=== PATIENT | female | born 1950 | race Hispanic/Latino ===

== ENCOUNTER 2018-01-27 17:38 | Inpatient (IN) | payer MEDICARE, MEDICAID ==
[2018-01-27 19:57] LABS: BASO # 0.01 K/mm3 (0.0-2.0); BASO % 0.1 % (0.0-3.0); EOS % 0.3 % (1.5-5.0); GRAN # 5.8 (1.4-6.5); GRAN % 66.1 % (50.0-68.0); HEMOGLOBIN 11.2 g/dL (12.0-16.0); LYMPH # 2.4 (1.2-3.4); LYMPH % 26.7 % (22.0-35.0); MEAN CORPUSCULAR HEMOGLOBIN 31.6 pg (25.0-35.0); MEAN CORPUSCULAR HGB CONC 35.6 g/dl (31.0-37.0); MEAN PLATELET VOLUME 7.7 fl (7.0-11.0); MONO # 0.6 (0.1-0.6); MONO % 6.8 % (1.0-6.0); RBC 3.54 10^6/uL (3.5-6.1); RED CELL DISTRIBUTION WIDTH 13.1 % (11.5-14.5); WHITE BLOOD COUNT 8.8 10^3/ul (4.5-11.0)
[2018-01-27 20:10] LABS: ACETAMINOPHEN < 10.0 ug/ml (10.0-20.0); ALB/GLOB RATIO 1.6 (1.1-1.8); ALBUMIN 4.3 g/dL (3.0-4.8); ALT/SGPT 27 U/L (7-56); AST/SGOT 31 U/L (14-36); BLOOD UREA NITROGEN 7 mg/dL (7-21); CALCIUM 9.3 mg/dL (8.4-10.5); GFR AFRICAN-AMERICAN > 60; GFR NON-AFRICAN AMERICAN > 60; SALICYLATE < 1 mg/dL (2.0-20.0)
[2018-01-27 20:31] LABS: URINE BILIRUBIN NEGATIVE (NEGATIVE); URINE BLOOD SMALL (NEGATIVE); URINE GLUCOSE (UA) NEGATIVE (NEGATIVE); URINE LEUKOCYTE ESTERASE NEGATIVE Leu/uL (NEGATIVE); URINE PROTEIN TRACE mg/dL (<30 mg/dL); URINE UROBILINOGEN 0.2 E.U./dL (<1 E.U./dL)
[2018-01-27 20:32] LABS: URINE APPEARANCE SL CLOUDY (CLEAR); URINE COLOR YELLOW (YELLOW)
[2018-01-27 20:39] LABS: URINE RBC 0 - 2 /hpf (0-2); URINE WBC NEGATIVE /hpf (0-6)
[2018-01-27 20:40] LABS: BARBITURATES, UR NEGATIVE (NEGATIVE); BENZODIAZEPINES, UR POSITIVE (NEGATIVE); OPIATES, UR NEGATIVE (NEGATIVE); PHENCYCLIDINE, UR NEGATIVE (NEGATIVE)
--- NOTE | 2018-01-27 21:31 | ED PDOC ---
Arrival/HPI - General Chief Complaint: Med Refill Time Seen by Provider: 01/27/18 19:14 Historian: Patient - History of Present Illness Narrative History of Present Illness (Text): 01/27/18 21:30 67-year-old female with a history of anxiety presents today stating she has been having intermittent anxiety attacks. Patient claims that she ran out of her psychiatric medications. Patient denies chest pain or shortness of breath at present time. Denies abdominal pain. No nausea or vomiting. Patient denies dizziness or weakness. Patient is unable to give an answer as to when the last time she took her anxiety medications. Although the [facility] aware website shows that she was prescribed 90 Valium on 01/03/18. Past Medical History - Provider Review Nursing Documentation Reviewed: Yes - Travel History Have you recently traveled outside [place] w/in the past 3 mons?: No - Infectious Disease Hx of Infectious Diseases: None - Reproductive Menopause: Yes - Cardiac Hx Cardiac Disorders: No - Pulmonary Hx Respiratory Disorders: No - Neurological Hx Neurological Disorder: No - HEENT Other/Comment: reading glasses - Hematological/Oncological Hx Blood Disorders: No Other/Comment: left breast lumpectomy; benign - Musculoskeletal/Rheumatological Hx Herniated Disk: Yes - Psychiatric Hx Anxiety: Yes Hx Panic Disorder: Yes Hx Substance Use: No - Surgical History Hx Section: Yes Hx Hysterectomy: Yes Other/Comment: benign tumor removed left breast - Anesthesia Hx Anesthesia: Yes Hx Anesthesia Reactions: No Hx Malignant Hyperthermia: No Family/Social History - Physician Review Nursing Documentation Reviewed: Yes Family/Social History: Unknown Family HX Smoking Status: Light Smoker < 10 Cigarettes Daily Hx Alcohol Use: No Hx Substance Use: No Allergies/Home Meds Allergies/Adverse Reactions: Allergies No Known Allergies Allergy (Verified 06/24/15 06:40) Home Medications: Home Meds Medication Instructions Recorded Confirmed clonazePAM [Klonopin] 3 tab PO BID 06/24/15 06/24/15 Citalopram Hydrobromide [Celexa] 40 mg PO DAILY 01/27/18 01/27/18 Cyclobenzaprine [Cyclobenzaprine 10 mg PO 01/27/18 HCl] diaZEpam [Valium] 10 mg PO TID 01/27/18 01/27/18 Review of Systems - Review of Systems Constitutional: absent: Fatigue, Fevers Respiratory: absent: SOB, Cough Cardiovascular: absent: Chest Pain, Palpitations Gastrointestinal: absent: Abdominal Pain, Nausea, Vomiting Genitourinary Female: absent: Dysuria, Frequency, Hematuria Musculoskeletal: absent: Arthralgias, Back Pain, Neck Pain Skin: absent: Rash, Pruritis Neurological: absent: Headache, Dizziness Psychiatric: Anxiety. absent: Depression, Suicidal Ideation Physical Exam Vital Signs Reviewed: Yes Vital Signs Temp Pulse Resp BP Pulse Ox 01/27/18 17:38 99.1 F 95 H 18 169/79 H 95 Temperature: Afebrile Blood Pressure: Hypertensive Pulse: Regular Respiratory Rate: Normal Appearance: Positive for: Well-Appearing, Non-Toxic, Comfortable Pain Distress: None Mental Status: Positive for: Alert and Oriented X 3 - Systems Exam Head: Present: Atraumatic Mouth: Present: Moist Mucous Membranes Neck: Present: Normal Range of Motion Respiratory/Chest: Present: Clear to Auscultation, Good Air Exchange. No: Respiratory Distress, Accessory Muscle Use Cardiovascular: Present: Regular Rate and Rhythm, Normal S1, S2. No: Murmurs Abdomen: No: Tenderness, Rebound, Guarding Neurological: Present: GCS=15, Speech Normal Skin: Present: Warm, Dry, Normal Color. No: Rashes Psychiatric: Present: Alert, Oriented x 3 Medical Decision Making ED Course and Treatment: 01/27/18 21:32 Patient is nontoxic well-appearing in no distress vital signs are stable. CBC WNL CMP NA; 121 Tylenol WNL Salicylate WNL Alcohol level WNL Urine drug screen + benzos UA; small blood cxr: wnl ekg NSR at 77b/m no st elevations. case discussed with dr. De Oliveira accepts admission to [facility] for hyponatremia. she would like to add. urine osmolality, urine NA, serum osmolality all aspects of this case were discussed the attending of record. Impression; hyponatremia, anxiety admit to tele. Reassessment Condition: Re-examined - Lab Interpretations Lab Results: 01/27/18 19:45 01/27/18 19:45 Lab Results 01/27/18 20:09: Urine Opiates Screen Negative, Urine Methadone Screen Negative, Ur Barbiturates Screen Negative, Ur Phencyclidine Scrn Negative, Ur Amphetamines Screen Negative, U Benzodiazepines Scrn Positive H, U Oth Cocaine Metabols Negative, U Cannabinoids Screen Negative 01/27/18 20:09: Urine Color Yellow, Urine Appearance Sl cloudy, Urine pH 7.0, Ur Specific [place] 1.015, Urine Protein Trace H, Urine Glucose (UA) Negative, Urine Ketones Negative, Urine Blood Small H, Urine Nitrate Negative, Urine Bilirubin Negative, Urine Urobilinogen 0.2, Ur Leukocyte Esterase Negative, Urine RBC 0 - 2, Urine WBC Negative 01/27/18 19:45: Alcohol, Quantitative < 10 01/27/18 19:45: Salicylates < 1 L, Acetaminophen < 10.0 L 01/27/18 19:45: Sodium 121 L, Potassium 4.7, Chloride 88 L, Carbon Dioxide 24, Anion Gap 14, BUN 7, Creatinine 0.5 L, Est GFR ( Amer) > 60, Est GFR (Non -Af Amer) > 60, Random Glucose 106, Calcium 9.3, Total Bilirubin 0.3, AST 31, ALT 27, Alkaline Phosphatase 50, Total Protein 7.0, Albumin 4.3, Globulin 2.7, Albumin/Globulin Ratio 1.6 01/27/18 19:45: WBC 8.8, RBC 3.54, Hgb 11.2 L, Hct 31.5 L, MCV 89.0, MCH 31.6, MCHC 35.6, RDW 13.1, Plt Count 335, MPV 7.7, Gran % 66.1, Lymph % (Auto) 26.7, [place] % (Auto) 6.8 H, Eos % (Auto) 0.3 L, Baso % (Auto) 0.1, Gran # 5.80, Lymph # (Auto) 2.4, [place] # (Auto) 0.6, Eos # (Auto) 0.0, Baso # (Auto) 0.01 - RAD Interpretation Radiology Orders: 01/27/18 19:15 CHEST PORTABLE [RAD] Stat - Medication Orders Current Medication Orders: Discontinued Medications Diazepam (Valium) 5 mg PO ONCE ONE Stop: 01/27/18 21:29 Disposition/Present on Arrival - Present on Arrival Any Indicators Present on Arrival: No History of DVT/PE: No History of Uncontrolled Diabetes: No Urinary Catheter: No History of Decub. Ulcer: No History Surgical Site Infection Following: None - Disposition Have Diagnosis and Disposition been Completed?: Yes Diagnosis: Anxiety, Hyponatremia Disposition: HOSPITALIZED Disposition Time: 21:28 Patient Plan: Admission Patient Problems: Current Active Problems Problem Status Onset Anxiety Acute Hyponatremia Acute Condition: GOOD Discharge Instructions (ExitCare): Anxiety, Adult (DC) Additional Instructions: Follow-up with primary care physician within the next 2 days Follow-up with a psychiatrist within the next 2 days Increase fluids Return if symptoms worsen persist or if new concerning symptoms develop Referrals: Titi Cunningham MD [Non-Staff] - Follow up with primary Bessy De Oliveira MD [Staff Provider] - Follow up with primary Forms: [employer] (Scottish), WORK NOTE
[2018-01-27] MEDS ORDERED: Sodium Chloride 3% 500 ML IV SCH (22:15)
[2018-01-27 23:21] LABS: OSMOLALITY,URINE 218 mosm/kg (300-1000)
[2018-01-27 23:30] LABS: T4 6.4 ug/dL (5.5-11.0)
[2018-01-28 00:53] VITALS: BMI 17.6
[2018-01-28 07:04] LABS: ALB/GLOB RATIO 1.4 (1.1-1.8); ALBUMIN 4.1 g/dL (3.0-4.8); ALT/SGPT 41 U/L (7-56); AST/SGOT 35 U/L (14-36); BLOOD UREA NITROGEN 8 mg/dL (7-21); CALCIUM 9.7 mg/dL (8.4-10.5); GFR AFRICAN-AMERICAN > 60; GFR NON-AFRICAN AMERICAN > 60
--- NOTE | 2018-01-28 09:13 | CARD ---
APPROVED REPORT EKG Measurement Heart [id number] CO [id number] <Conclusion> Normal sinus rhythm Normal ECG No change except the rate is faster
[2018-01-28] MEDS ORDERED: Sodium Chloride 0.9% 1,000 ML IV SCH (11:45)
[2018-01-28 11:46] LABS: IRON 126 ug/dL (45-180)
[2018-01-28 11:55] LABS: % IRON SATURATION 40 % (20-55); TOTAL IRON BINDING CAPACITY 318 ug/dL (265-497)
[2018-01-28] MEDS ORDERED: Iohexol 240 (50 ml) ONE (12:13)
--- NOTE | 2018-01-28 12:33 | RAD ---
HISTORY: pes eval COMPARISON: 06/24/2015 FINDINGS: LUNGS: No active pulmonary disease. PLEURA: No significant pleural effusion identified, no pneumothorax apparent. CARDIOVASCULAR: Normal. OSSEOUS STRUCTURES: No significant abnormalities. VISUALIZED UPPER ABDOMEN: Normal. OTHER FINDINGS: None. IMPRESSION: No active disease.
[2018-01-28 13:15] LABS: FOLATE 18.7 ng/mL
[2018-01-28] MEDS: Naproxen 550 mg Tab PO SCH ×2 (17:42→17:44)
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
[2018-01-29 06:57] VITALS: RESP 18; O2SAT 99
[2018-01-29 07:08] LABS: HEMOGLOBIN 11.4 g/dL (12.0-16.0)
[2018-01-29 07:31] LABS: BLOOD UREA NITROGEN 17 mg/dL (7-21); CALCIUM 9.4 mg/dL (8.4-10.5); GFR AFRICAN-AMERICAN > 60; GFR NON-AFRICAN AMERICAN > 60
[2018-01-29] MEDS: Naproxen 550 mg Tab PO SCH ×2 (09:59→17:45)
[2018-01-29 18:09] VITALS: BP 137/82; PULSE 79; TEMP 97.8
--- NOTE | 2018-01-30 07:26 | DS ---
DATE OF EXAM: 01/29/2018 FINAL DIAGNOSES: Hyponatremia, resolved; anemia of chronic disease; chronic degenerative arthritis; chronic depression; chronic anxiety; chronic insomnia; chronic smoking. DISPOSITION: Home. FOLLOWUP: The patient was advised to follow up with her PMD, Dr. Stern in [address] Cunningham, psychiatrist in 48 hours. DISCHARGE MEDICATIONS: She was given prescriptions for Valium 10 mg p.o. three times a day, #6, no refills and Celexa 40 mg p.o. daily, #2, no refills. The patient was also advised to pick up truck driver Nicoderm smoking patch 7 mg per 24 hour and to cease smoking and also to have followup basic metabolic panel under the direction of her PMD in the next 48 hours. SUMMARY: This is a 67-year-old female who was admitted to [facility] with hyponatremia, was found to have anemia of chronic disease and was treated successfully with initially hypertonic saline, then normal saline and p.o. fluid restriction. The patient was seen by psychiatrist, Dr. Alvin Odonnell who cleared the patient for discharge and advised her to follow up for her routine psychiatric issues with Dr. Cunningham and I have advised this patient to follow up with her PMD, Dr. Stern regarding management of her newly noted now resolved hyponatremia and chronic issues of degenerative arthritis, anxiety neurosis, anemia of chronic disease and at the time of discharge, she was noted to have a temperature of 98.3, respirations 20, pulse 80 and blood pressure 142/70. She was in a normal sinus rhythm. Current labs shows sodium 138, K 5.4, chloride 101, bicarb 30, BUN 17, creatinine 0.7, random blood sugar 93. Iron 126, TIBC 318, percent saturation 40, ferritin 116 normal. All liver function testing was normal. B12 348. Folic acid 18.7, normal T4 6.4 normal and TSH 1.09 normal. Urinalysis showed trace protein, urine sodium 41, urine osmolarity 218. Toxicology screen positive for benzodiazepines and white count 8800, hemoglobin 11.4, hematocrit 33.7, platelets 335,000. All of the above was reviewed with the patient in the presence of her nurse and all questions were answered. Greater than 35 minutes was spent in the discharge management of this patient today. Hopefully, she will be compliant with the above recommendations as outlined by myself and Dr. Odonnell from Psychiatry. Bessy De Oliveira MD [facility]
--- NOTE | 2018-01-31 08:05 | HP ---
DATE OF EXAM: 01/28/2018 HISTORY OF PRESENT ILLNESS: This 67-year-old female was examined at her bedside and this case was reviewed in detail with herself, Dr. Odonnell from Psychiatry, and emergency room physicians. She presented to the emergency room complaining of a panic attack. She was requesting additional Valium because she states she ran out of this prescription. She is under the psychiatric care of Dr. Cunningham, psychiatrist, and was last prescribed 90 Valium on 01/03/2018. While in the emergency room, she was noted to be anxious, ataxic, and hyponatremic and was admitted for further evaluation of the above. On further evaluation of this patient, she states that she has chronic insomnia, chronic anxiety, and has a history of suicidal attempt in her past. Her EMR states that she has a history of left breast lumpectomy for benign lesion in the past and is under the medical care of Dr. Stern at the [facility] in [place], [place], and follows with Dr. Cunningham from Psychiatry and a director global strategic publisher sales as well. SOCIAL HISTORY: The patient states she is a smoker, social drinker, non-IV-drug misuser. ALLERGIES: DENIED ANY ALLERGIES TO MEDICATION. MEDICATIONS: States as an outpatient, she takes Klonopin, dose unknown, twice daily; Celexa 60 mg p.o. daily; Flexeril 10 mg daily; and Valium 10 mg p.o. t.i.d. REVIEW OF SYSTEMS: CONSTITUTIONAL: Denied fever and chills. HEAD: No headache. EYE: No change in visual acuity. Ear: No hearing loss. THROAT: No swallowing difficulty. NECK: No stiffness. CARDIAC: No chest pain, no palpitation. PULMONARY: No cough. No hemoptysis. GI: No hematemesis. No melena. : No dysuria. SKIN: No rash. VASCULAR: No claudication. PSYCHOLOGICAL: She has chronic anxiety, depression, and insomnia. SKIN: No active rash at present. On the laboratory monitor, she is in a normal sinus rhythm. PHYSICAL EXAMINATION: VITAL SIGNS: Her temperature was 98.3, respirations 17, pulse 93, and blood pressure 134/88. HEENT: Head: Normocephalic, atraumatic. Eyes: No icterus. Ears: Clear. Throat: Noninjected. NECK: Supple. HEART: Regular S1, S2. LUNGS: Clear. ABDOMEN: Soft. EXTREMITIES: No edema. SKIN: Without rash. NEUROLOGICAL: Grossly intact. PSYCHOLOGICAL: Alert and anxious. VASCULAR: Legs warm to touch. LABORATORY DATA: Her labs show a toxicology screen positive for benzodiazepines. White count 8800, hemoglobin 11.2, hematocrit 31.5, platelets 335,000. Admission sodium was 121, K 4.7, chloride 88, bicarb 24, BUN 7, creatinine 0.5, random blood sugar 106. Bilirubin 0.3, AST 31, ALT is 27, alk phos 50. Serum osmolality, low 246. T4 normal 6.4, TSH normal 1.09. Urine osmolality, low 218. Urine sodium high, 41. Chest x-ray was reviewed and showed no active disease and EKG was reviewed and showed normal sinus rhythm with nonspecific ST-T wave changes. IMPRESSION: A 67-year-old female with chronic anxiety, chronic depression, history of suicidal ideation in her past, history of insomnia; now admitted with hyponatremia of unclear etiology. Patient denied any use of diuretics, vomiting, or diarrhea. PLAN: The plan, as outlined, will be to continue 3% saline at 35 mL/hour. She will be seen by Dr. Odonnell who is outlining medication including Celexa 40 mg p.o. daily, Flexeril 10 mg p.o. at nighttime, Nicoderm 7 mg per 24 hours smoking patch to arm daily, and Valium 10 mg p.o. t.i.d. She is also to receive naproxen 500 mg p.o. b.i.d. for her chronic degenerative arthritic complaints. I have requested a CT of head, chest, abdomen, and pelvis for completeness sake, which the patient refuses and based on a.m. blood work, patient will be readied for discharge to home and for follow up with her PMD, Dr. Stern; her psychiatrist, Dr. Cunningham; and her director global strategic publisher sales. Greater than 75 minutes was spent in the care management, review of labs, orders, x-rays, EKGs, and outlining of treatment plan for this patient today. All questions were answered. Bessy De Oliveira MD [facility] # [id number] TONY
== END 2018-01-29 18:36 | disposition home or self-care (01) | DRG 641 ==
LOC: ED 17:38 → ERH 21:53 → 2RNO 23:16
PROVIDERS: ADMIT Internal Medicine; ATTEND Internal Medicine
DX: E87.1 Hypo-osmolality and hyponatremia (principal); D63.8 Anemia in other chronic diseases classified elsewhere; F41.0 Panic disorder [episodic paroxysmal anxiety]; F41.1 Generalized anxiety disorder; F31.9 Bipolar disorder, unspecified; M19.90 Unspecified osteoarthritis, unspecified site; M06.9 Rheumatoid arthritis, unspecified; F51.04 Psychophysiologic insomnia; F17.200 Nicotine dependence, unspecified, uncomplicated; F60.4 Histrionic personality disorder

== ENCOUNTER 2018-03-27 21:04 | Emergency (ER) | payer MEDICARE, MEDICAID ==
[2018-03-27 21:31] VITALS: BMI 25.6
--- NOTE | 2018-03-27 21:36 | ED PDOC ---
Arrival/HPI - General Historian: Patient - History of Present Illness Time/Duration: 1 week Symptom Course: Unchanged Severity Level: 1 <Figueroa Cool - Last Filed: 03/27/18 22:44> <Elda Ramírez - Last Filed: 03/27/18 23:34> - General Time Seen by Provider: 03/27/18 21:19 - History of Present Illness Narrative History of Present Illness (Text): 03/27/18 21:55 Patient is a 67 year old female with PMH of anxiety and depression presenting to the ED with anxiety. Patient states that she is feeling anxious because she ran out of her medication and cannot refill them until Wednesday. She states that she needs to take her medications now. Patient denies suicidal or homicidal ideation. Patient denies headaches, fevers, chills, chest pain, abdominal pain, or urinary symptoms. (Figueroa Cool) Past Medical History - Provider Review Nursing Documentation Reviewed: Yes - Travel History Have you recently traveled outside [place] w/in the past 3 mons?: No - Past History Past History: No Previous - Infectious Disease Hx of Infectious Diseases: None - Cardiac Hx Cardiac Disorders: No - Pulmonary Hx Respiratory Disorders: No - Neurological Hx Neurological Disorder: No - HEENT Other/Comment: reading glasses - Hematological/Oncological Hx Blood Disorders: No Other/Comment: left breast lumpectomy; benign - Musculoskeletal/Rheumatological Hx Falls: No Hx Herniated Disk: Yes - Genitourinary/Gynecological Hx Sexually Transmitted Diseases: No - Psychiatric Hx Anxiety: Yes Hx Panic Disorder: Yes Hx Substance Use: No - Surgical History Hx Hysterectomy: Yes Other/Comment: benign tumor removed left breast - Anesthesia Hx Anesthesia: Yes Hx Anesthesia Reactions: No Hx Malignant Hyperthermia: No <Figueroa Cool - Last Filed: 03/27/18 22:44> Family/Social History - Physician Review Nursing Documentation Reviewed: Yes Family/Social History: No Known Family HX Smoking Status: Heavy Smoker > 10 Cigarettes Daily Hx Alcohol Use: Yes Hx Substance Use: No <Figueroa Cool - Last Filed: 03/27/18 22:44> Allergies/Home Meds <Figueroa Cool - Last Filed: 03/27/18 22:44> <Elda Ramírez - Last Filed: 03/27/18 23:34> Allergies/Adverse Reactions: Allergies No Known Allergies Allergy (Verified 03/27/18 21:45) Home Medications: Home Meds Medication Instructions Recorded Confirmed clonazePAM [Klonopin] 3 tab PO BID 06/24/15 03/27/18 Citalopram Hydrobromide [Celexa] 40 mg PO DAILY 01/27/18 03/27/18 Cyclobenzaprine [Cyclobenzaprine 10 mg PO DAILY 01/27/18 03/27/18 HCl] diaZEpam [Valium] 10 mg PO TID 01/27/18 03/27/18 Review of Systems - Physician Review All systems were reviewed & negative as marked: Yes - Review of Systems Constitutional: Normal. absent: Fevers, Night Sweats Eyes: Normal. absent: Vision Changes ENT: Normal Respiratory: Normal. absent: SOB Cardiovascular: Normal. absent: Chest Pain Gastrointestinal: Normal. absent: Abdominal Pain, Constipation, Diarrhea, Nausea, Vomiting Genitourinary Female: Normal. absent: Dysuria, Frequency, Hematuria Musculoskeletal: Normal. absent: Arthralgias Skin: Normal. absent: Rash, Pruritis Neurological: Normal. absent: Headache Psychiatric: Anxiety <Figueroa Cool - Last Filed: 03/27/18 22:44> - Review of Systems Psychiatric: Depression. absent: Suicidal Ideation (homicidal ideation) <Elda Ramírez - Last Filed: 03/27/18 23:34> Physical Exam Vital Signs Reviewed: Yes Temperature: Afebrile Blood Pressure: Normal Pulse: Regular Respiratory Rate: Normal Appearance: Positive for: Well-Appearing Pain Distress: None Mental Status: Positive for: Alert and Oriented X 3 - Systems Exam Head: Present: Atraumatic, Normocephalic Pupils: Present: PERRL Extroacular Muscles: Present: EOMI Conjunctiva: Present: Normal Mouth: Present: Moist Mucous Membranes Respiratory/Chest: Present: Clear to Auscultation, Good Air Exchange. No: Respiratory Distress, Accessory Muscle Use, Wheezes, Rales, Rhonchi Cardiovascular: Present: Regular Rate and Rhythm, Normal S1, S2. No: Murmurs, Rub, Gallop Abdomen: Present: Normal Bowel Sounds. No: Tenderness, Distention, Peritoneal Signs Upper Extremity: Present: Normal Inspection. No: Cyanosis, Edema Lower Extremity: Present: Normal Inspection. No: Edema, CALF TENDERNESS Neurological: Present: GCS=15, CN II-XII Intact, Speech Normal Skin: Present: Warm, Dry, Normal Color. No: Rashes Psychiatric: Present: Alert, Oriented x 3, Anxious <Figueroa Cool - Last Filed: 03/27/18 22:44> Vital Signs Temp Pulse Resp BP Pulse Ox 03/27/18 22:54 98 F 75 19 127/53 L 99 03/27/18 22:23 98 F 85 19 124/75 99 03/27/18 21:36 98 F 78 19 116/53 L 98 Medical Decision Making Reassessment Condition: Re-examined, Improved <Figueroa Cool - Last Filed: 03/27/18 22:44> <Elda Ramírez - Last Filed: 03/27/18 23:34> ED Course and Treatment: 03/27/18 21:54 Impression: Patient is a 67 year old female presenting to the ED with anxiety. Differential Diagnosis included but are not limited to: - Anxiety Plan: -- Diazepam -- Flexeril Progress Notes: 03/27/18 21:58 - Patient examined, patient states she is feeling anxious and ran out of her medications and need to take them today. 03/27/18 22:12 - Patient was given her home medications diazepam and flexeril. She states she is feeling much better and wants to go home. Patient is stable for discharge. (Figueroa Cool) Patient Seen With Resident: In agreement with resident note which contains more details about the patient. Patient was seen and evaluated with resident. Came up with plan and treatment together. 67 year old female presents complaining of anxiety and depression. She states she ran out of her medication that she needs to take today. Plan: -- Flexeril, Valium -- Reassess and disposition (Elda Ramírez) - Medication Orders Current Medication Orders: Discontinued Medications Cyclobenzaprine HCl (Flexeril) 10 mg PO STAT STA Stop: 03/27/18 21:49 Last Admin: 03/27/18 22:04 Dose: 10 mg Diazepam (Valium) 10 mg PO ONCE ONE PRN Reason: Protocol Stop: 03/27/18 21:50 Last Admin: 03/27/18 22:04 Dose: 10 mg <Figueroa Cool - Last Filed: 03/27/18 22:44> - PA / SEARCH MARKETING SPECIALIST / Resident Statement / has reviewed & agrees with the documentation as recorded. MD/ has examined the patient and agrees with the treatment plan. - Scribe Statement The provider has reviewed the documentation as recorded by the Scribe <Elda Ramírez - Last Filed: 03/27/18 23:34> - Scribe Statement Adam Fagan Provider Scribe Attestation: All medical record entries made by the Scribe were at my direction and personally dictated by me. I have reviewed the chart and agree that the record accurately reflects my personal performance of the history, physical exam, medical decision making, and the department course for this patient. I have also personally directed, reviewed, and agree with the discharge instructions and disposition. (Elda Ramírez) Disposition/Present on Arrival - Present on Arrival Any Indicators Present on Arrival: No History of DVT/PE: No History of Uncontrolled Diabetes: No Urinary Catheter: No History of Decub. Ulcer: No History Surgical Site Infection Following: None - Disposition Have Diagnosis and Disposition been Completed?: Yes Disposition Time: 22:18 Patient Plan: Discharge <Figueroa Cool - Last Filed: 03/27/18 22:44> <Elda Ramírez - Last Filed: 03/27/18 23:34> - Disposition Diagnosis: Anxiety Disposition: HOME/ ROUTINE Condition: IMPROVED Additional Instructions: SCOT ABARCA, thank you for letting us take care of you today. Your provider was and you were treated for anxiety. The emergency medical care you received today was directed at your acute symptoms. If you were prescribed any medication, please fill it and take as directed. It may take several days for your symptoms to resolve. Return to the Emergency Department if your symptoms worsen, do not improve, or if you have any other problems. Please contact your doctor or call one of the physicians/clinics you have been referred to that are listed on the Patient Visit Information form that is included in your discharge packet. Bring any paperwork you were given at discharge with you along with any medications you are taking to your follow up visit. Our treatment cannot replace ongoing medical care by a primary care provider outside of the emergency department. Thank you for allowing the [facility] team to be part of your care today. If you had an X-Ray or CT scan: A Radiologist will review the ED reading if any change in treatment is needed we will contact you. If you had a blood, urine, or wound culture: It will take several days for the results, if any change in treatment is needed we will contact you. If you had an STI test: It will take 48 hours for the results. Please call after 1 week if you have not heard back. Referrals: Cata Lundberg MD [Medical Doctor] - Follow up with primary Forms: [employer] ([place]ian)
[2018-03-27 21:44] VITALS: RESP 19; TEMP 98
[2018-03-27 22:24] VITALS: O2SAT 99
[2018-03-27 23:00] VITALS: BP 127/53; PULSE 75
== END 2018-03-27 22:54 | disposition home or self-care (01) ==
LOC: ED 21:04
DX: F41.9 Anxiety disorder, unspecified (principal); F17.210 Nicotine dependence, cigarettes, uncomplicated

== ENCOUNTER 2018-07-07 00:50 | Emergency (ER) | payer MEDICARE, MEDICAID ==
[2018-07-07 01:04] VITALS: BMI 20.4
--- NOTE | 2018-07-07 01:23 | ED PDOC ---
Arrival/HPI - General Chief Complaint: Trauma Time Seen by Provider: 07/07/18 01:02 Historian: Patient - History of Present Illness Narrative History of Present Illness (Text): 07/07/18 01:20 Yamilex May is a 67 year old female, whose past medical history includes rheumatoid arthritis, chronic back pain, anxiety, and depression, who presents to the emergency department brought in by EMS status post fall at 21:00 yesterday. Patient states she felt dizzy while walking and fell down a flight of stairs. Patient now complaining of neck pain, lower back pain, and bilateral lower leg pain. Patient requesting pain medication. The patient denies any fever, chills, chest pain, shortness of breath, nausea, vomiting, urinary symptoms, headache, or any other complaints. Symptom Onset: Gradual Symptom Course: Unchanged Activities at Onset: Light Context: Home, Slipped Past Medical History - Provider Review Nursing Documentation Reviewed: Yes - Past History Past History: No Previous - Infectious Disease Hx of Infectious Diseases: None - Cardiac Hx Cardiac Disorders: No - Pulmonary Hx Respiratory Disorders: No - Neurological Hx Neurological Disorder: No - HEENT Other/Comment: reading glasses - Hematological/Oncological Hx Blood Disorders: No Other/Comment: left breast lumpectomy; benign - Musculoskeletal/Rheumatological Hx Falls: No Hx Herniated Disk: Yes - Genitourinary/Gynecological Hx Sexually Transmitted Diseases: No - Psychiatric Hx Anxiety: Yes Hx Panic Disorder: Yes Hx Substance Use: No - Surgical History Hx Hysterectomy: Yes Other/Comment: benign tumor removed left breast - Anesthesia Hx Anesthesia: Yes Hx Anesthesia Reactions: No Hx Malignant Hyperthermia: No Family/Social History - Physician Review Nursing Documentation Reviewed: Yes Family/Social History: Unknown Family HX Smoking Status: Heavy Smoker > 10 Cigarettes Daily Hx Alcohol Use: Yes Hx Substance Use: No Allergies/Home Meds Allergies/Adverse Reactions: Allergies No Known Allergies Allergy (Verified 03/27/18 21:45) Home Medications: Home Meds Medication Instructions Recorded Confirmed clonazePAM [Klonopin] 3 tab PO BID 06/24/15 03/27/18 Citalopram Hydrobromide [Celexa] 40 mg PO DAILY 01/27/18 03/27/18 Cyclobenzaprine [Cyclobenzaprine 10 mg PO DAILY 01/27/18 03/27/18 HCl] diaZEpam [Valium] 10 mg PO TID 01/27/18 03/27/18 Review of Systems - Physician Review All systems were reviewed & negative as marked: Yes - Review of Systems Constitutional: Normal. absent: Fevers Eyes: Normal ENT: Normal Respiratory: Normal. absent: SOB, Cough Cardiovascular: Normal. absent: Chest Pain Gastrointestinal: Normal. absent: Abdominal Pain, Diarrhea, Nausea, Vomiting Genitourinary Female: Normal. absent: Dysuria, Frequency, Hematuria, Urine Output Changes Musculoskeletal: Arthralgias, Back Pain, Neck Pain Skin: Normal. absent: Rash Neurological: Dizziness. absent: Headache Endocrine: Normal Hemo/Lymphatic: Normal Psychiatric: Normal Physical Exam Vital Signs Reviewed: Yes Temperature: Afebrile Blood Pressure: Normal Pulse: Regular Respiratory Rate: Normal Appearance: Positive for: Well-Appearing, Non-Toxic, Comfortable Pain Distress: None Mental Status: Positive for: Alert and Oriented X 3 - Systems Exam Head: Present: Atraumatic, Normocephalic Pupils: Present: PERRL Extroacular Muscles: Present: EOMI Conjunctiva: Present: Normal Mouth: Present: Moist Mucous Membranes Neck: Present: Paraspinal Tenderness (Paracervical tenderness). No: Meningeal Signs, MIDLINE TENDERNESS Respiratory/Chest: Present: Clear to Auscultation, Good Air Exchange. No: Res piratory Distress, Accessory Muscle Use Cardiovascular: Present: Regular Rate and Rhythm, Normal S1, S2. No: Murmurs Abdomen: No: Tenderness, Distention, Peritoneal Signs Back: Present: Paraspinal Tenderness (Paralumbar tenderness). No: CVA Tenderness, Midline Tenderness Upper Extremity: Present: Normal Inspection. No: Cyanosis, Edema Lower Extremity: Present: Normal Inspection. No: Edema Neurological: Present: GCS=15, CN II-XII Intact, Speech Normal Skin: Present: Warm, Dry, Normal Color. No: Rashes Psychiatric: Present: Alert, Oriented x 3, Normal Insight, Normal Concentration Medical Decision Making ED Course and Treatment: 07/07/18 01:21 Impression: 67 year old female presents s/p fall complaining of lower back pain, neck pain, and bilateral lower leg pain. Plan: -- CT Head w/o contrast -- CT Cervical Spine w/o contrast -- CT Thoracic Spine w/o contrast -- CT Lumbar Spine w/o contrast -- EKG -- Labs, alcohol level, cardiac enzymes, alcohol level -- Urinalysis -- XR Bilateral Knees -- XR Bilateral Tibia/Fibula -- XR Bilateral Ankles -- Reassess and disposition Prior Visits: Notes and results from previous visits were reviewed. Progress Notes: Reviewed EKG, sinus bradycardia at [address]-segment elevations or depressions, no T-wave inversions, normal intervals. 07/07/18 03:50 Reviewed radiology, XR Bilateral Knees shows no acute processes, no fractures. XR Bilateral Tibia/Fibula shows no acute processes, no fractures. XR Bilateral Ankles shows no acute processes, no fractures. CT Head: Normal size of the ventricles and extra-axial spaces for the patient's age. Normal white matter tracts of the supratentorial brain. Normal basal ganglia and thalami. Normal brainstem. Normal cerebellum. There is no demonstrated extra-axial, intraparenchymal, or intraventricular hemorrhage. There are no findings of an acute ischemic infarction. Normal calvarium. There is no demonstrated fracture. Normal soft tissue structures. Normal visualized paranasal sinuses. IMPRESSION: Normal unenhanced CT scan of the brain. Electronically signed on Jul 07, 2018 3:17:17 AM EST by: Peter Blanco M.D., Certified by ABR, MSK, Neuroradiology CT Cervical Spine: There are diffuse spondylotic changes. Findings are demonstrated by disc space narrowing, osteophyte formation and degenerative endplate changes. Facet joint arthropathy is noted. No fracture or dislocation is seen. No aggressive bone lesion is noted. Moderate multilevel degenerative disc disease more prominent from C3-C7. Impression: Spondylosis. Multilevel facet joint arthropathy. No acute bone pathology. Electronically signed on Jul 07, 2018 3:21:15 AM EST by: Peter Blanco M.D., Certified by INDU, MSK, Neuroradiology CT Thoracic Spine: There are diffuse spondylotic changes. Findings are demonstrated by disc space narrowing, osteophyte formation and degenerative endplate changes. Facet joint arthropathy is noted. No fracture or dislocation is seen. No aggressive bone lesion is noted. Moderate multilevel degenerative disc disease more prominent from T2-T12 levels. Impression: Spondylosis. Multilevel facet joint arthropathy. No acute bone pathology. Electronically signed on Jul 07, 2018 3:27:44 AM EST by: Peter Blanco M.D., Certified by ABR, MSK, Neuroradiology CT Lumbar Spine: There are diffuse spondylotic changes. Findings are demonstrated by disc space narrowing, osteophyte formation and degenerative endplate changes. Facet joint arthropathy is noted. No fracture or dislocation is seen. No aggressive bone lesion is noted. Moderate multilevel degenerative disc disease more prominent from T2-T12 levels. Impression: Spondylosis. Multilevel facet joint arthropathy. No acute bone pathology. Electronically signed on Jul 07, 2018 3:31:48 AM EST by: Peter Blanco M.D., Certified by ELVI GRIGGS, Neuroradiology 07/07/18 04:[address] Vaughan, who is aware and agrees with plan. Accepts pt in to his service. Pt will go to Telemetry observation for near-syncope and falls. finance vice president notified. - Lab Interpretations I have reviewed the lab results: Yes - RAD Interpretation Technology Assistant: ED Physician, Radiologist - EKG Interpretation Interpreted by ED Physician: Yes Type: 12 lead EKG - Scribe Statement The provider has reviewed the documentation as recorded by the Rayiblazaro Quinn Provider Scribe Attestation: All medical record entries made by the Scribe were at my direction and personally dictated by me. I have reviewed the chart and agree that the record accurately reflects my personal performance of the history, physical exam, medical decision making, and the department course for this patient. I have also personally directed, reviewed, and agree with the discharge instructions and disposition. Disposition/Present on Arrival - Present on Arrival Any Indicators Present on Arrival: No History of DVT/PE: No History of Uncontrolled Diabetes: No Urinary Catheter: No History of Decub. Ulcer: No History Surgical Site Infection Following: None - Disposition Have Diagnosis and Disposition been Completed?: Yes Diagnosis: Near syncope, Fall (on) (from) other stairs and steps, initial encounter Disposition: HOSPITALIZED Disposition Time: 04:07 Patient Problems: Current Active Problems Problem Status Onset Fall (on) (from) other stairs and steps, initial encounter Acute Near syncope Acute Condition: STABLE
[2018-07-07 01:58] LABS: ALB/GLOB RATIO 1.3 (1.1-1.8); ALBUMIN 3.9 g/dL (3.0-4.8); ALT/SGPT 33 U/L (7-56); AST/SGOT 48 U/L (14-36); BLOOD UREA NITROGEN 8 mg/dL (7-21); CALCIUM 9.2 mg/dL (8.4-10.5); GFR NON-AFRICAN AMERICAN > 60; HEMOGLOBIN 10.8 g/dL (12.0-16.0); MEAN CELL VOLUME 91.3 fl (80.0-105.0); MEAN CORPUSCULAR HEMOGLOBIN 31.3 pg (25.0-35.0); MEAN CORPUSCULAR HGB CONC 34.3 g/dl (31.0-37.0); MEAN PLATELET VOLUME 8.9 fl (7.0-11.0); RBC 3.45 10^6/uL (3.5-6.1); WHITE BLOOD COUNT 8.9 10^3/uL (4.5-11.0)
[2018-07-07 02:15] LABS: TROPONIN I < 0.01 ng/mL
[2018-07-07] MEDS ORDERED: Oxycodone/Acetaminophen 5/325 mg Tab PO STA (03:58)
[2018-07-07 04:03] LABS: PH,URINE 6.5 (4.7-8.0); URINE BILIRUBIN NEGATIVE (NEGATIVE); URINE BLOOD NEGATIVE (NEGATIVE); URINE GLUCOSE (UA) NEGATIVE (NEGATIVE); URINE LEUKOCYTE ESTERASE NEGATIVE Leu/uL (NEGATIVE); URINE PROTEIN NEGATIVE mg/dL (<30 mg/dL); URINE UROBILINOGEN 0.2 E.U./dL (<1 E.U./dL)
[2018-07-07 04:08] LABS: URINE APPEARANCE CLEAR (CLEAR); URINE COLOR YELLOW (YELLOW)
[2018-07-07 04:27] LABS: BARBITURATES, UR NEGATIVE (NEGATIVE); BENZODIAZEPINES, UR POSITIVE (NEGATIVE); OPIATES, UR NEGATIVE (NEGATIVE); PHENCYCLIDINE, UR NEGATIVE (NEGATIVE)
[2018-07-07 06:10] VITALS: RESP 18; TEMP 98.5; O2SAT 100
[2018-07-07 06:23] VITALS: BP 124/89; PULSE 86
--- NOTE | 2018-07-07 08:43 | CT ---
Date of service: 07/07/2018 PROCEDURE: CT HEAD WITHOUT CONTRAST. HISTORY: Injury COMPARISON: None available. TECHNIQUE: Axial computed tomography images were obtained through the head/brain without intravenous contrast. Radiation dose: Total exam DLP = 783.41 mGy-cm. This CT exam was performed using one or more of the following dose reduction techniques: Automated exposure control, adjustment of the mA and/or kV according to patient size, and/or use of iterative reconstruction technique. FINDINGS: HEMORRHAGE: No intracranial hemorrhage. BRAIN: Alcaraz-white matter differentiation is preserved. There is no mass, mass effect or abnormal extra-axial fluid collection. There is no territorial infarction. The midline sagittal structures are normal. VENTRICLES: There is mild age-related global parenchymal volume loss and proportionate enlargement of the ventricles and cortical sulci. CALVARIUM: There is no calvarial fracture or extracranial soft tissue swelling. PARANASAL SINUSES: Predominantly clear. MASTOID AIR CELLS: Predominantly clear. OTHER FINDINGS: None. IMPRESSION: No acute intracranial abnormality. A preliminary report was provided by [employer].
--- NOTE | 2018-07-07 10:20 | CT ---
Date of service: 07/07/2018 PROCEDURE: CT Cervical Spine without contrast HISTORY: injury COMPARISON: None available. TECHNIQUE: Axial computed tomography images were obtained of the cervical spine without the use of intravenous contrast. Coronal and sagittal reformatted images were created and reviewed. Radiation dose: Total exam DLP = 242.18 mGy-cm. This CT exam was performed using one or more of the following dose reduction techniques: Automated exposure control, adjustment of the mA and/or kV according to patient size, and/or use of iterative reconstruction technique. FINDINGS: VERTEBRAE: No fracture. Normal alignment. No destructive bony lesion. DISCS/SPINAL CANAL/NEURAL FORAMINA: Multilevel degenerative disc disease and spondylosis. PARASPINAL SOFT TISSUES: Unremarkable. OTHER FINDINGS: None. IMPRESSION: No fracture.
--- NOTE | 2018-07-07 10:27 | CT ---
Date of service: 07/07/2018 PROCEDURE: CT Thoracic Spine without contrast HISTORY: injury COMPARISON: None available. TECHNIQUE: Axial computed tomography images were obtained of the thoracic spine without intravenous contrast. Coronal and sagittal reformatted images were created and reviewed. Radiation dose: Total exam DLP = 217.87 mGy-cm. This CT exam was performed using one or more of the following dose reduction techniques: Automated exposure control, adjustment of the mA and/or kV according to patient size, and/or use of iterative reconstruction technique. FINDINGS: VERTEBRAE: Unremarkable. No fracture. Normal alignment. DISCS/SPINAL CANAL/NEURAL FORAMINA: Within the limits of the CT technique, no disc herniation seen. No central canal or neural foraminal stenosis.. PARASPINAL SOFT TISSUES: Unremarkable. OTHER FINDINGS: Multilevel facet arthropathy. IMPRESSION: No fracture.
--- NOTE | 2018-07-07 10:40 | CT ---
Date of service: 07/07/2018 PROCEDURE: CT Lumbar Spine without contrast HISTORY: injury COMPARISON: None available. TECHNIQUE: Axial computed tomography images were obtained of the lumbar spine without the use of intravenous contrast. Coronal and sagittal reformatted images were created and reviewed. Radiation dose: Total exam DLP = 328.99 mGy-cm. This CT exam was performed using one or more of the following dose reduction techniques: Automated exposure control, adjustment of the mA and/or kV according to patient size, and/or use of iterative reconstruction technique. FINDINGS: VERTEBRAE: Unremarkable. No fracture. Normal alignment. DISCS/SPINAL CANAL/NEURAL FORAMINA: L1-2: Unremarkable. L2-3: Unremarkable. L3-4: Unremarkable. L4-5: Unremarkable. L5-S1: Central disc herniation. PARASPINAL SOFT TISSUES: Unremarkable. OTHER FINDINGS: Lower lumbar facet arthropathy. IMPRESSION: No fracture. Central disc herniation at L5-S1 with anterior epidural fat indentation. Lower lumbar facet arthropathy.
--- NOTE | 2018-07-07 13:55 | RAD ---
Date of service: 07/07/2018 PROCEDURE: Bilateral Knee Radiographs. HISTORY: injury COMPARISON: None. FINDINGS: BONES: Right Knee: Normal. No fracture. Left Knee: Normal. No fracture. JOINTS: Right Knee: Normal. No osteoarthritis. Left knee: Normal. No osteoarthritis. SOFT TISSUES: Right Knee: Normal. Left Knee: Normal. JOINT EFFUSION: Right Knee: None. Left Knee: None. OTHER FINDINGS: None. IMPRESSION: No acute fracture or dislocation.
--- NOTE | 2018-07-07 14:08 | RAD ---
Date of service: 07/07/2018 PROCEDURE: Radiographs of the bilateral Tibiae and Fibulae. HISTORY: injury COMPARISON: None available. TECHNIQUE: Frontal and lateral views obtained. FINDINGS: BONES: RIGHT TIBIA: No acute fracture or destructive lesion. LEFT TIBIA: No acute fracture or destructive lesion. JOINT SPACES: RIGHT TIBIA: Normal. LEFT TIBIA: Normal. SOFT TISSUES: RIGHT TIBIA: Normal. LEFT TIBIA: Normal. OTHER FINDINGS: None. IMPRESSION: No acute fracture or dislocation.
--- NOTE | 2018-07-07 14:10 | RAD ---
Date of service: 07/07/2018 PROCEDURE: Bilateral Ankle Radiographs. HISTORY: injury COMPARISON: None available. FINDINGS: BONES: Right Ankle: Normal. No acute fracture. Left Ankle: Normal. No acute fracture. JOINTS: Right Ankle: Normal. No osteoarthritis. Ankle mortise maintained. Talar dome intact. Left Ankle: Normal. No osteoarthritis. Ankle mortise maintained. Talar dome intact. SOFT TISSUES: Right Ankle: Normal. Left Ankle: Normal. OTHER FINDINGS: None. IMPRESSION: No acute fracture or dislocation.
--- NOTE | 2018-07-08 00:27 | CARD ---
APPROVED REPORT Date of service: 07/07/2018 EKG Measurement Heart [id number] VT [id number] <Conclusion> Sinus bradycardia Otherwise normal ECG
== END 2018-07-07 05:00 | disposition left against medical advice (07) ==
LOC: ED 00:50 → ERH 04:04 → UNDOADMOB 04:04 → ED 05:00
DX: R55 Syncope and collapse (principal); W10.9XXA Fall (on) (from) unspecified stairs and steps, initial encounter; M06.9 Rheumatoid arthritis, unspecified; F17.210 Nicotine dependence, cigarettes, uncomplicated
CPT/HCPCS: 70450; 72125; 72128; 72131; 73560; 73590; 73610; 80053; 81003; 82550; 83615; 84484; 85027; 93005; 99285; G0480

== ENCOUNTER 2018-08-01 02:07 | Emergency (ER) | payer MEDICARE, MEDICAID ==
[2018-08-01 02:07] VITALS: BMI 20.4
[2018-08-01 02:21] VITALS: TEMP 97.4
--- NOTE | 2018-08-01 03:13 | ED PDOC ---
Arrival/HPI - General Chief Complaint: Med Refill Past Medical History - Past History Past History: No Previous - Infectious Disease Hx of Infectious Diseases: None - Cardiac Hx Cardiac Disorders: No - Pulmonary Hx Respiratory Disorders: No - Neurological Hx Neurological Disorder: No - HEENT Other/Comment: reading glasses - Hematological/Oncological Hx Blood Disorders: No Other/Comment: left breast lumpectomy; benign - Musculoskeletal/Rheumatological Hx Falls: No Hx Herniated Disk: Yes Hx Osteoarthritis: Yes - Genitourinary/Gynecological Hx Sexually Transmitted Diseases: No - Psychiatric Hx Anxiety: Yes Hx Panic Disorder: Yes Hx Substance Use: No - Surgical History Hx Hysterectomy: Yes Other/Comment: benign tumor removed left breast - Anesthesia Hx Anesthesia: Yes Hx Anesthesia Reactions: No Hx Malignant Hyperthermia: No Family/Social History Smoking Status: Heavy Smoker > 10 Cigarettes Daily Hx Alcohol Use: Yes Hx Substance Use: No Allergies/Home Meds Allergies/Adverse Reactions: Allergies No Known Allergies Allergy (Verified 03/27/18 21:45) Home Medications: Home Meds Medication Instructions Recorded Confirmed clonazePAM [Klonopin] 3 tab PO BID 06/24/15 03/27/18 Citalopram Hydrobromide [Celexa] 40 mg PO DAILY 01/27/18 03/27/18 Cyclobenzaprine [Cyclobenzaprine 10 mg PO DAILY 01/27/18 03/27/18 HCl] diaZEpam [Valium] 10 mg PO TID 01/27/18 03/27/18 Physical Exam Vital Signs Temp Pulse Resp BP Pulse Ox 08/01/18 02:15 97.4 F L 74 20 127/88 95 Medical Decision Making - Medication Orders Current Medication Orders: Discontinued Medications Alprazolam (Xanax) 0.5 mg PO STAT STA; Protocol Stop: 08/01/18 02:37 Ketorolac Tromethamine (Toradol) 60 mg IM STAT STA Stop: 08/01/18 03:00 Disposition/Present on Arrival - Present on Arrival Any Indicators Present on Arrival: No History of DVT/PE: No History of Uncontrolled Diabetes: No Urinary Catheter: No History of Decub. Ulcer: No History Surgical Site Infection Following: None - Disposition Have Diagnosis and Disposition been Completed?: Yes Diagnosis: Anxiety, Malingering Disposition: HOME/ ROUTINE Disposition Time: 03:12 Patient Plan: Discharge Condition: STABLE Discharge Instructions (ExitCare): Anxiety, Adult (DC) Print Language: ALBANIAN Additional Instructions: All medical record entries made by the Scribe were at my direction and personally dictated by me. I have reviewed the chart and agree that the record accurately reflects my personal performance of the history, physical exam, medical decision making, and the department course for this patient. I have also personally directed, reviewed, and agree with the discharge instructions and disposition. Referrals: Titi Cunningham MD [Non-Staff] - Follow up with primary
[2018-08-01 03:31] VITALS: BP 124/82; PULSE 68; RESP 18; O2SAT 97
== END 2018-08-01 03:25 | disposition home or self-care (01) ==
LOC: ED 02:07
DX: F41.9 Anxiety disorder, unspecified (principal); Z76.5 Malingerer [conscious simulation]
CPT/HCPCS: 96372; 99283; J1885

== ENCOUNTER 2018-08-09 11:53 | Inpatient (IN) | payer MEDICARE, MEDICAID ==
--- NOTE | 2018-08-09 12:25 | ED PDOC ---
Arrival/HPI - General Chief Complaint: Psychiatric Evaluation Time Seen by Provider: 08/09/18 12:07 Historian: Patient - History of Present Illness Narrative History of Present Illness (Text): 08/09/18 12:22 A 32 year old female, whose past medical history includes rheumatoid arthritis, chronic back pain, anxiety, and depression, presents to the emergency department for altered mental status. Patient is speaking in tangents and in nonsensical answers saying things such as I hope those people are okay, their hands are hurt". HPI and ROS are limited due to patient's confused state. PMD: Sydnee Mchugh Time/Duration: 4-6 hours Symptom Onset: Gradual Symptom Course: Unchanged Activities at Onset: Light Context: Home Past Medical History - Provider Review Nursing Documentation Reviewed: Yes - Past History Past History: No Previous - Infectious Disease Hx of Infectious Diseases: None - Reproductive Menopause: Yes - Cardiac Hx Cardiac Disorders: No - Pulmonary Hx Respiratory Disorders: No - Neurological Hx Neurological Disorder: No - HEENT Other/Comment: reading glasses - Hematological/Oncological Hx Blood Disorders: No Other/Comment: left breast lumpectomy; benign - Musculoskeletal/Rheumatological Hx Falls: No Hx Herniated Disk: Yes Hx Osteoarthritis: Yes - Genitourinary/Gynecological Hx Sexually Transmitted Diseases: No - Psychiatric Hx Anxiety: Yes Hx Panic Disorder: Yes Hx Substance Use: No - Surgical History Hx Hysterectomy: Yes Other/Comment: benign tumor removed left breast - Anesthesia Hx Anesthesia: Yes Hx Anesthesia Reactions: No Hx Malignant Hyperthermia: No Family/Social History - Physician Review Nursing Documentation Reviewed: Yes Family/Social History: No Known Family HX Smoking Status: Heavy Smoker > 10 Cigarettes Daily Hx Alcohol Use: Yes Hx Substance Use: No Allergies/Home Meds Allergies/Adverse Reactions: Allergies No Known Allergies Allergy (Verified 03/27/18 21:45) Home Medications: Home Meds Medication Instructions Recorded Confirmed Citalopram Hydrobromide [Celexa] 40 mg PO DAILY 01/27/18 08/09/18 Cyclobenzaprine [Cyclobenzaprine 10 mg PO DAILY 01/27/18 08/09/18 HCl] Alprazolam [Xanax] 2 mg PO BID 08/09/18 08/09/18 Gabapentin [Neurontin] 100 mg PO BID 08/09/18 08/09/18 Oxycodone HCl/Acetaminophen 10 - 325 mg PO BID PRN 08/09/18 08/09/18 [Percocet 10-325 mg Tablet] Temazepam [Restoril] 30 mg PO HS 08/09/18 08/09/18 Review of Systems - Review of Systems Systems not reviewed;Unavailable: Altered Mental Status (Due to confused state) Physical Exam - Physical Exam Narrative Physical Exam (Text): 08/09/18 12:22 Gen: VS reviewed, well developed, well nourished, nontoxic, mild distress, confused, frail appearing. ENT: normal pharynx. Eye: EOMI, PERRL. Neck: no JVD, supple, no adenopathy. CV: regular rate, regular rhythm, no rubs, no murmur, no gallops, S1, S2, pulses equal and strong. Pulm: no distress, clear to auscultation, no wheeze, no rhonchi, breath sounds e qual, no rales. Abd: soft, nontender, no guarding, no rebound, no rigidity, normal bowel sounds. Ext: no edema. Skin: good color, no rash, no cyanosis. Psych: responds appropriately to questions, normal affect. Neuro: Confused, disoriented to time, situation, and place, CN2-12 intact grossly, motor intact, sensation intact. Vital Signs Reviewed: Yes Vital Signs Temp Pulse Resp BP Pulse Ox 08/09/18 12:13 98.1 F 68 18 152/89 H 98 Temperature: Afebrile Blood Pressure: Hypertensive Pulse: Regular Respiratory Rate: Normal Medical Decision Making ED Course and Treatment: 08/09/18 12:22 Impression: 68 year old presenting to the emergency department for altered mental status. Plan: -- Head CT without contrast -- EKG -- Labs -- CBC -- Chest X-Ray -- Urine culture -- Urinalysis -- Reassess and disposition Prior Visits: Notes and results from previous visits were reviewed. Progress Notes: 08/09/18 17:[address] house to the hospitalist service. patient was seen by PES and the pcp states that recently and it was reported that the patient's mental status was "normal" and the current mental status is new-in other words, delirium. it was recommended to admit to medicine. 08/09/18 17:16 - RAD Interpretation Narrative RAD Interpretations (Text): 08/09/18 14:37 Procedure: Head CT without contrast Dictator: Veronique Bates Impression: No acute intracranial abnormality Procedure: Chest X-ray Dictator: Veronique Bates Impression: No active pulmonary disease. Calender Operator: Radiologist - EKG Interpretation EKG Interpretation (Text): 08/09/18 14:32 EKG: Ordered, reviewed, and independently interpreted the EKG. Rate : 82 BPM Rhythm : NSR Interpretation : Normal QRS, normal axis, no acute ST-T wave abnormalities. Interpreted by ED Physician: Yes - Scribe Statement The provider has reviewed the documentation as recorded by the Dexter Barrow All medical record entries made by the Dexter were at my direction and personally dictated by me. I have reviewed the chart and agree that the record accurately reflects my personal performance of the history, physical exam, medical decision making, and the department course for this patient. I have also personally directed, reviewed, and agree with the discharge instructions and disposition. Disposition/Present on Arrival - Present on Arrival Any Indicators Present on Arrival: No History of DVT/PE: No History of Uncontrolled Diabetes: No Urinary Catheter: No History of Decub. Ulcer: No History Surgical Site Infection Following: None - Disposition Have Diagnosis and Disposition been Completed?: Yes Diagnosis: Delirium Disposition: HOSPITALIZED Disposition Time: 17:17 Patient Plan: Admission Patient Problems: Current Active Problems Problem Status Onset Delirium Acute Condition: STABLE Forms: [employer] (Maltese)
--- NOTE | 2018-08-09 13:09 | CT ---
Date of service: 08/09/2018 PROCEDURE: CT HEAD WITHOUT CONTRAST. HISTORY: altered mentation COMPARISON: 07/07/2018. TECHNIQUE: Axial computed tomography images were obtained through the head/brain without intravenous contrast. Radiation dose: Total exam DLP = 745.15 mGy-cm. This CT exam was performed using one or more of the following dose reduction techniques: Automated exposure control, adjustment of the mA and/or kV according to patient size, and/or use of iterative reconstruction technique. FINDINGS: HEMORRHAGE: No intracranial hemorrhage. BRAIN: [place]caraz-white matter differentiation is preserved. There is no mass, mass effect or abnormal extra-axial fluid collection. There is no territorial infarction. The midline sagittal structures are normal. VENTRICLES: There is mild age-related global parenchymal volume loss and proportionate enlargement of the ventricles and cortical sulci. CALVARIUM: There is no calvarial fracture or extracranial soft tissue swelling. PARANASAL SINUSES: Predominantly clear. MASTOID AIR CELLS: Predominantly clear. OTHER FINDINGS: None. IMPRESSION: No acute intracranial abnormality.
--- NOTE | 2018-08-09 13:10 | RAD ---
Date of service: 08/09/2018 HISTORY: chest pain COMPARISON: 01/27/2018. FINDINGS: LUNGS: The lungs are well inflated and clear. PLEURA: No pleural effusions or pneumothorax. CARDIOVASCULAR: The heart is normal in size. No aortic atherosclerotic calcifications present. OSSEOUS STRUCTURES: Within normal limits for the patient's age. VISUALIZED UPPER ABDOMEN: Normal. OTHER FINDINGS: None. IMPRESSION: No active pulmonary disease.
[2018-08-09 13:58] LABS: BASO # 0.04 K/mm3 (0.0-2.0); BASO % 0.4 % (0.0-3.0); EOS % 0.2 % (1.5-5.0); GRAN # 6.41 (1.4-6.5); GRAN % 63.3 % (50.0-68.0); HEMOGLOBIN 12.6 g/dL (12.0-16.0); LYMPH # 2.9 (1.2-3.4); LYMPH % 28.8 % (22.0-35.0); MEAN CELL VOLUME 89.6 fl (80.0-105.0); MEAN CORPUSCULAR HEMOGLOBIN 31.1 pg (25.0-35.0); MEAN CORPUSCULAR HGB CONC 34.7 g/dl (31.0-37.0); MEAN PLATELET VOLUME 8.6 fl (7.0-11.0); MONO # 0.7 (0.1-0.6); MONO % 7.3 % (1.0-6.0); RBC 4.05 10^6/uL (3.5-6.1); WHITE BLOOD COUNT 10.1 10^3/uL (4.5-11.0)
[2018-08-09 13:59] LABS: ALB/GLOB RATIO 1.7 (1.1-1.8); ALBUMIN 4.7 g/dL (3.0-4.8); ALT/SGPT 26 U/L (7-56); AST/SGOT 20 U/L (14-36); BLOOD UREA NITROGEN 12 mg/dL (7-21); CALCIUM 10.6 mg/dL (8.4-10.5); GFR NON-AFRICAN AMERICAN > 60
[2018-08-09 17:07] LABS: URINE BILIRUBIN SMALL (NEGATIVE); URINE BLOOD TRACE-INTACT (NEGATIVE); URINE GLUCOSE (UA) NEGATIVE (NEGATIVE); URINE LEUKOCYTE ESTERASE NEGATIVE Leu/uL (NEGATIVE); URINE PROTEIN NEGATIVE mg/dL (<30 mg/dL); URINE UROBILINOGEN 0.2 E.U./dL (<1 E.U./dL)
[2018-08-09 17:16] LABS: URINE APPEARANCE CLEAR (CLEAR); URINE COLOR YELLOW (YELLOW)
[2018-08-09 17:29] LABS: URINE BACTERIA FEW /hpf; URINE WBC 0 - 2 /hpf (0-6)
[2018-08-09 17:44] LABS: BARBITURATES, UR NEGATIVE (NEGATIVE); BENZODIAZEPINES, UR POSITIVE (NEGATIVE); OPIATES, UR NEGATIVE (NEGATIVE); PHENCYCLIDINE, UR NEGATIVE (NEGATIVE)
[2018-08-09 18:17] LABS: ACETAMINOPHEN < 10.0 ug/ml (10.0-20.0); SALICYLATE < 1 mg/dL (2.0-20.0)
--- NOTE | 2018-08-09 18:19 | CP.PCM.HP ---
<DavidAmbriz - Last Filed: 08/09/18 20:59> History of Present Illness - History of Present Illness History of Present Illness: Pb Hernandez, PGY-1 Medicine H&P Note for Dr. Castillo: CC: AMS Pt is a 68 yo F with pmhx of rheumatoid arthritis, chronic back pain, anxiety, HTN and depression who presents to the ED for AMS. Pt is actively confused, tangential and is having delusions of people having body parts and heads that are not matching. Pt also claims that her meds have run out but when confirmed by pharmacy, and by looking at recent visits she was here for a similar problem and had her medication filled and picked up within the past week. Pts PMD, Sydnee Mchugh was called and stated that this was something new for the pt. Further HPI and ROS could not be obtained due to pts current confused and agitated state. Other Hx was obtained through chart review. At this time Pt den ies SI/HI. Pmhx: Rheumatoid arthritis, chronic back pain, anxiety, HTN and depression Pshx: L breast benign tumor Meds: Celexa 40 po qd, flexeril 10qd, neurotin 100 BID, percocet 10-325, restoril 30, Xanax 2 BID All: NKDA Social: Unable to obtain Fam: Unable to obtain PMD: Sydnee Stern Psych: Dr. Titi Reyes Pharm: August Present on Admission - Present on Admission Any Indicators Present on Admission: No Review of Systems - Review of Systems Systems not reviewed;Unavailable: Altered Mental Status Past Patient History - Infectious Disease Hx of Infectious Diseases: None - Past Social History Smoking Status: Heavy Smoker > 10 Cigarettes Daily - CARDIAC Hx Cardiac Disorders: No - PULMONARY Hx Respiratory Disorders: No - NEUROLOGICAL Hx Neurological Disorder: No - HEENT Other/Comment: reading glasses - HEMATOLOGICAL/ONCOLOGICAL Hx Blood Disorders: No Other/Comment: left breast lumpectomy; benign - MUSCULOSKELETAL/RHEUMATOLOGICAL Hx Falls: No Hx Herniated Disk: Yes Hx Osteoarthritis: Yes - GENITOURINARY/GYNECOLOGICAL Hx Sexually Transmitted Disorders: No - PSYCHIATRIC Hx Anxiety: Yes Hx Panic Symptoms: Yes Hx Substance Use: No - SURGICAL HISTORY Hx Hysterectomy: Yes Other/Comment: benign tumor removed left breast - ANESTHESIA Hx Anesthesia: Yes Hx Anesthesia Reactions: No Hx Malignant Hyperthermia: No Meds Allergies/Adverse Reactions: Allergies Allergy/AdvReac Type Severity Reaction Status Date / Time No Known Allergies Allergy Verified 03/27/18 21:45 Physical Exam - Constitutional Appears: Non-toxic, No Acute Distress, Agitated, Confused - Head Exam Head Exam: ATRAUMATIC, NORMAL INSPECTION, NORMOCEPHALIC - Eye Exam Eye Exam: EOMI, Normal appearance, PERRL - Respiratory Exam Respiratory Exam: Clear to Auscultation Bilateral, NORMAL BREATHING PATTERN. absent: Accessory Muscle Use, Rales, Rhonchi, Wheezes, Respiratory Distress, Stridor - Cardiovascular Exam Cardiovascular Exam: RRR, +S1, +S2. absent: Gallop, Rubs - GI/Abdominal Exam GI & Abdominal Exam: Normal Bowel Sounds, Soft. absent: Distended, Firm, Guarding, Tenderness - Extremities Exam Extremities exam: Positive for: normal inspection. Negative for: calf tenderness, pedal edema - Back Exam Back exam: NORMAL INSPECTION. absent: CVA tenderness (L), CVA tenderness (R) - Neurological Exam Neurological exam: Altered Additional comments: Pt refused to comply with neuro exam, no facial droop or slurred speech noted, pt was able to move all extremities freely without limitation of pain or weakness - Psychiatric Exam Psychiatric exam: Agitated Additional comments: Denies SI/HI - Skin Skin Exam: Dry, Normal Color, Warm Results - Vital Signs Recent Vital Signs: Last Vital Signs Temp 98.1 F 08/09/18 12:13 Pulse 73 08/09/18 14:12 Resp 18 08/09/18 14:12 BP 163/81 H 08/09/18 16:16 Pulse Ox 98 08/09/18 14:12 - Labs Result Diagrams: 08/09/18 13:40 08/09/18 13:40 Labs: Laboratory Results - last 24 hr 08/09/18 08/09/18 08/09/18 13:40 13:40 13:40 WBC 10.1 RBC 4.05 Hgb 12.6 Hct 36.3 MCV 89.6 MCH 31.1 MCHC 34.7 RDW 13.0 Plt Count 526 H MPV 8.6 Gran % 63.3 Lymph % (Auto) 28.8 Harrison % (Auto) 7.3 H Eos % (Auto) 0.2 L Baso % (Auto) 0.4 Gran # 6.41 Lymph # (Auto) 2.9 Harrison # (Auto) 0.7 H Eos # (Auto) 0.0 Baso # (Auto) 0.04 Sodium 132 Potassium 4.3 Chloride 99 Carbon Dioxide 25 Anion Gap 12 BUN 12 Creatinine 0.5 L Est GFR ( Amer) > 60 Est GFR (Non-Af Amer) > 60 Random Glucose 95 Calcium 10.6 H Magnesium 1.9 Total Bilirubin 0.6 AST 20 ALT 26 Alkaline Phosphatase 55 Ammonia Total Protein 7.5 Albumin 4.7 Globulin 2.8 Albumin/Globulin Ratio 1.7 Urine Color Urine Appearance Urine pH Ur Specific [place] Urine Protein Urine Glucose (UA) Urine Ketones Urine Blood Urine Nitrate Urine Bilirubin Urine Urobilinogen Ur Leukocyte Esterase Urine RBC Urine WBC Ur Epithelial Cells Urine Bacteria Salicylates Urine Opiates Screen Urine Methadone Screen Acetaminophen Ur Barbiturates Screen Ur Phencyclidine Scrn Ur Amphetamines Screen U Benzodiazepines Scrn U Oth Cocaine Metabols U Cannabinoids Screen Alcohol, Quantitative < 10 08/09/18 08/09/18 08/09/18 16:59 16:59 17:49 WBC RBC Hgb Hct MCV MCH MCHC RDW Plt Count MPV Gran % Lymph % (Auto) Harrison % (Auto) Eos % (Auto) Baso % (Auto) Gran # Lymph # (Auto) Harrison # (Auto) Eos # (Auto) Baso # (Auto) Sodium Potassium Chloride Carbon Dioxide Anion Gap BUN Creatinine Est GFR ( Amer) Est GFR (Non-Af Amer) Random Glucose Calcium Magnesium Total Bilirubin AST ALT Alkaline Phosphatase Ammonia < 9 L Total Protein Albumin Globulin Albumin/Globulin Ratio Urine Color Yellow Urine Appearance Clear Urine pH 6.0 Ur Specific [place] >= 1.030 Urine Protein Negative Urine Glucose (UA) Negative Urine Ketones 15 H Urine Blood Trace-intact H Urine Nitrate Negative Urine Bilirubin Small H Urine Urobilinogen 0.2 Ur Leukocyte Esterase Negative Urine RBC 1 - 3 H Urine WBC 0 - 2 Ur Epithelial Cells 3 - 4 Urine Bacteria Few Salicylates Urine Opiates Screen Negative Urine Methadone Screen Negative Acetaminophen Ur Barbiturates Screen Negative Ur Phencyclidine Scrn Negative Ur Amphetamines Screen Negative U Benzodiazepines Scrn Positive H U Oth Cocaine Metabols Negative U Cannabinoids Screen Positive H Alcohol, Quantitative 08/09/18 17:57 WBC RBC Hgb Hct MCV MCH MCHC RDW Plt Count MPV Gran % Lymph % (Auto) Harrison % (Auto) Eos % (Auto) Baso % (Auto) Gran # Lymph # (Auto) Harrison # (Auto) Eos # (Auto) Baso # (Auto) Sodium Potassium Chloride Carbon Dioxide Anion Gap BUN Creatinine Est GFR ( Amer) Est GFR (Non-Af Amer) Random Glucose Calcium Magnesium Total Bilirubin AST ALT Alkaline Phosphatase Ammonia Total Protein Albumin Globulin Albumin/Globulin Ratio Urine Color Urine Appearance Urine pH Ur Specific [place] Urine Protein Urine Glucose (UA) Urine Ketones Urine Blood Urine Nitrate Urine Bilirubin Urine Urobilinogen Ur Leukocyte Esterase Urine RBC Urine WBC Ur Epithelial Cells Urine Bacteria Salicylates < 1 L Urine Opiates Screen Urine Methadone Screen Acetaminophen < 10.0 L Ur Barbiturates Screen Ur Phencyclidine Scrn Ur Amphetamines Screen U Benzodiazepines Scrn U Oth Cocaine Metabols U Cannabinoids Screen Alcohol, Quantitative Assessment & Plan - Assessment and Plan (Free Text) Assessment: Pt is a 68 yo F with pmhx of rheumatoid arthritis, chronic back pain, anxiety, HTN and depression who presents to the ED for AMS. Head CT was negative for intracranial path, CXR and UA was also negative. Plan: 1) AMS - 2/2 Delerium vs Psychosis, less likely infectious due to pt being afebrile, no WBC count and UA and CXR are negative for infectious process - Pt sees Dr. Titi Reyes as her psychiatrist - Per pts pharmacy she just had her celexa picked up on 08/04/18 - Psychiatry consult - f/u ammonia level - UDS 2) Hx of Chronic Back Pain: - Hold flexeril and Percocet since pt is not complaining of pain at this time 3) Hx of HTN - Cont pts home lopression now and lisinopril in AM 4) Hx of Anxiety: - Switched pts xanax from 2mg scheduled to 2 mg PRN PPX: DVT: SCDs Regular Diet Case Seen and discussed with Dr. Jonathan Hernandez, PGY-1 <Camila Castillo - Last Filed: 08/10/18 08:16> Results - Vital Signs Recent Vital Signs: Last Vital Signs Temp 98.0 F 08/09/18 18:43 Pulse 90 08/09/18 19:21 Resp 20 08/09/18 22:28 BP 173/88 H 08/09/18 19:21 Pulse Ox 100 08/09/18 18:43 - Labs Result Diagrams: 08/10/18 07:00 08/10/18 07:00 Labs: Laboratory Results - last 24 hr 08/09/18 08/09/18 08/09/18 13:40 13:40 13:40 WBC 10.1 RBC 4.05 Hgb 12.6 Hct 36.3 MCV 89.6 MCH 31.1 MCHC 34.7 RDW 13.0 Plt Count 526 H MPV 8.6 Gran % 63.3 Lymph % (Auto) 28.8 Harrison % (Auto) 7.3 H Eos % (Auto) 0.2 L Baso % (Auto) 0.4 Gran # 6.41 Lymph # (Auto) 2.9 Harrison # (Auto) 0.7 H Eos # (Auto) 0.0 Baso # (Auto) 0.04 Sodium 132 Potassium 4.3 Chloride 99 Carbon Dioxide 25 Anion Gap 12 BUN 12 Creatinine 0.5 L Est GFR ( Amer) > 60 Est GFR (Non-Af Amer) > 60 Random Glucose 95 Calcium 10.6 H Magnesium 1.9 Total Bilirubin 0.6 AST 20 ALT 26 Alkaline Phosphatase 55 Ammonia Total Protein 7.5 Albumin 4.7 Globulin 2.8 Albumin/Globulin Ratio 1.7 TSH 3rd Generation Urine Color Urine Appearance Urine pH Ur Specific [place] Urine Protein Urine Glucose (UA) Urine Ketones Urine Blood Urine Nitrate Urine Bilirubin Urine Urobilinogen Ur Leukocyte Esterase Urine RBC Urine WBC Ur Epithelial Cells Urine Bacteria Salicylates Urine Opiates Screen Urine Methadone Screen Acetaminophen Ur Barbiturates Screen Ur Phencyclidine Scrn Ur Amphetamines Screen U Benzodiazepines Scrn U Oth Cocaine Metabols U Cannabinoids Screen Alcohol, Quantitative < 10 08/09/18 08/09/18 08/09/18 16:59 16:59 17:49 WBC RBC Hgb Hct MCV MCH MCHC RDW Plt Count MPV Gran % Lymph % (Auto) Harrison % (Auto) Eos % (Auto) Baso % (Auto) Gran # Lymph # (Auto) Harrison # (Auto) Eos # (Auto) Baso # (Auto) Sodium Potassium Chloride Carbon Dioxide Anion Gap BUN Creatinine Est GFR ( Amer) Est GFR (Non-Af Amer) Random Glucose Calcium Magnesium Total Bilirubin AST ALT Alkaline Phosphatase Ammonia < 9 L Total Protein Albumin Globulin Albumin/Globulin Ratio TSH 3rd Generation Urine Color Yellow Urine Appearance Clear Urine pH 6.0 Ur Specific [place] >= 1.030 Urine Protein Negative Urine Glucose (UA) Negative Urine Ketones 15 H Urine Blood Trace-intact H Urine Nitrate Negative Urine Bilirubin Small H Urine Urobilinogen 0.2 Ur Leukocyte Esterase Negative Urine RBC 1 - 3 H Urine WBC 0 - 2 Ur Epithelial Cells 3 - 4 Urine Bacteria Few Salicylates Urine Opiates Screen Negative Urine Methadone Screen Negative Acetaminophen Ur Barbiturates Screen Negative Ur Phencyclidine Scrn Negative Ur Amphetamines Screen Negative U Benzodiazepines Scrn Positive H U Oth Cocaine Metabols Negative U Cannabinoids Screen Positive H Alcohol, Quantitative 08/09/18 08/10/18 08/10/18 17:57 07:00 07:00 WBC 11.7 H RBC 3.61 Hgb 11.2 L Hct 32.2 L MCV 89.2 MCH 31.0 MCHC 34.8 RDW 12.8 Plt Count 430 MPV 8.1 Gran % 50.6 Lymph % (Auto) 41.5 H Harrison % (Auto) 7.2 H Eos % (Auto) 0.3 L Baso % (Auto) 0.4 Gran # 5.94 Lymph # (Auto) 4.9 H [place] # (Auto) 0.9 H Eos # (Auto) 0.0 Baso # (Auto) 0.05 Sodium 127 L Potassium 4.0 Chloride 94 L Carbon Dioxide 24 Anion Gap 13 BUN 15 Creatinine 0.7 Est GFR ( Amer) > 60 Est GFR (Non-Af Amer) > 60 Random Glucose 74 Calcium 9.8 Magnesium Total Bilirubin 0.6 AST 27 ALT 27 Alkaline Phosphatase 52 Ammonia Total Protein 7.1 Albumin 4.3 Globulin 2.7 Albumin/Globulin Ratio 1.6 TSH 3rd Generation Urine Color Urine Appearance Urine pH Ur Specific [place] Urine Protein Urine Glucose (UA) Urine Ketones Urine Blood Urine Nitrate Urine Bilirubin Urine Urobilinogen Ur Leukocyte Esterase Urine RBC Urine WBC Ur Epithelial Cells Urine Bacteria Salicylates < 1 L Urine Opiates Screen Urine Methadone Screen Acetaminophen < 10.0 L Ur Barbiturates Screen Ur Phencyclidine Scrn Ur Amphetamines Screen U Benzodiazepines Scrn U Oth Cocaine Metabols U Cannabinoids Screen Alcohol, Quantitative 08/10/18 07:00 WBC RBC Hgb Hct MCV MCH MCHC RDW Plt Count MPV Gran % Lymph % (Auto) Harrison % (Auto) Eos % (Auto) Baso % (Auto) Gran # Lymph # (Auto) Harrison # (Auto) Eos # (Auto) Baso # (Auto) Sodium Potassium Chloride Carbon Dioxide Anion Gap BUN Creatinine Est GFR ( Amer) Est GFR (Non-Af Amer) Random Glucose Calcium Magnesium Total Bilirubin AST ALT Alkaline Phosphatase Ammonia Total Protein Albumin Globulin Albumin/Globulin Ratio TSH 3rd Generation 0.58 Urine Color Urine Appearance Urine pH Ur Specific [place] Urine Protein Urine Glucose (UA) Urine Ketones Urine Blood Urine Nitrate Urine Bilirubin Urine Urobilinogen Ur Leukocyte Esterase Urine RBC Urine WBC Ur Epithelial Cells Urine Bacteria Salicylates Urine Opiates Screen Urine Methadone Screen Acetaminophen Ur Barbiturates Screen Ur Phencyclidine Scrn Ur Amphetamines Screen U Benzodiazepines Scrn U Oth Cocaine Metabols U Cannabinoids Screen Alcohol, Quantitative Attending/Attestation - Attestation I have personally seen and examined this patient.: Yes I have fully participated in the care of the patient.: Yes I have reviewed all pertinent clinical information: Yes Notes (Text): 08/09/18 68 year old female with past medical history of rheumatoid arthritis, anxiety, depression and hypertension who presents with AMS/delirium. CT head was negative. UA not suggestive of UTI. Urine drug screen positive for benzodiazepines and cannabinoids. Psychiatry evaluation is requested. Continue with home medications for hypertension. Camila Castillo MD Hospitalist.
[2018-08-09] MEDS ORDERED: Non Formulary Medication (Temazepam [Restoril] 30 MG) PO SCH (22:00)
[2018-08-09 23:09] VITALS: BMI 23.4
[2018-08-10 07:26] LABS: BASO # 0.05 K/mm3 (0.0-2.0); BASO % 0.4 % (0.0-3.0); EOS % 0.3 % (1.5-5.0); GRAN # 5.94 (1.4-6.5); GRAN % 50.6 % (50.0-68.0); HEMOGLOBIN 11.2 g/dL (12.0-16.0); LYMPH # 4.9 (1.2-3.4); LYMPH % 41.5 % (22.0-35.0); MEAN CELL VOLUME 89.2 fl (80.0-105.0); MEAN CORPUSCULAR HGB CONC 34.8 g/dl (31.0-37.0); MEAN PLATELET VOLUME 8.1 fl (7.0-11.0); MONO # 0.9 (0.1-0.6); MONO % 7.2 % (1.0-6.0); RBC 3.61 10^6/uL (3.5-6.1); RED CELL DISTRIBUTION WIDTH 12.8 % (11.5-14.5); WHITE BLOOD COUNT 11.7 10^3/uL (4.5-11.0)
[2018-08-10 08:08] LABS: ALB/GLOB RATIO 1.6 (1.1-1.8); ALBUMIN 4.3 g/dL (3.0-4.8); ALT/SGPT 27 U/L (7-56); AST/SGOT 27 U/L (14-36); BLOOD UREA NITROGEN 15 mg/dL (7-21); CALCIUM 9.8 mg/dL (8.4-10.5); GFR NON-AFRICAN AMERICAN > 60
--- NOTE | 2018-08-10 09:43 | CARD ---
APPROVED REPORT Date of service: 08/09/2018 EKG Measurement Heart [id number] <Conclusion> Normal sinus rhythm Normal ECG
[2018-08-10 14:36] LABS: BLOOD UREA NITROGEN 16 mg/dL (7-21); CALCIUM 9.7 mg/dL (8.4-10.5); GFR NON-AFRICAN AMERICAN > 60
--- NOTE | 2018-08-10 14:56 | CP.PCM.PN ---
<Pb Hernandez - Last Filed: 08/10/18 15:54> Subjective - Date & Time of Evaluation Date of Evaluation: 08/10/18 Time of Evaluation: 14:48 - Subjective Subjective: Pb Hernandez, PGY-1 Medicine Progress Note for Dr. Castillo: Pt was seen and examined this AM at bedside. Pt continues to be altered, agitated and continues to have delusions of beheadings. Pts exam is limited due to tangential and delusional thought. Pt is AOx0. She continues to deny SI/HI. Objective - Vital Signs/Intake and Output Vital Signs (last 24 hours): Temp Pulse Resp BP Pulse Ox 98.0 F 98 H 20 148/119 H 100 08/09/18 18:43 08/10/18 09:45 08/09/18 22:28 08/10/18 09:45 08/09/18 18:43 Intake and Output: 08/10/18 08/10/18 06:59 18:59 Intake Total 430 Balance 430 - Medications Medications: Current Medications Alprazolam (Xanax) 2 mg PO BID PRN PRN Reason: Anxiety Last Admin: 08/10/18 09:28 Dose: 2 mg Aspirin (Ecotrin) 81 mg PO DAILY [facility] Last Admin: 08/10/18 09:28 Dose: 81 mg Citalopram Hydrobromide (Celexa) 40 mg PO DAILY [facility] Last Admin: 08/10/18 09:28 Dose: 40 mg Gabapentin (Neurontin) 200 mg PO BID [facility]; Protocol Last Admin: 08/10/18 09:27 Dose: 200 mg Lisinopril (Zestril) 20 mg PO DAILY [facility] Last Admin: 08/10/18 09:45 Dose: 20 mg Metoprolol Tartrate (Lopressor) 25 mg PO BID [facility] Last Admin: 08/10/18 09:34 Dose: 25 mg Nicotine (Nicoderm Cq) 1 patch TD DAILY [facility] Last Admin: 08/10/18 09:46 Dose: 1 patch Non-Formulary Medication (Temazepam [Restoril]) 30 mg PO [facility] - Labs Labs: 08/10/18 07:00 08/10/18 14:17 - Constitutional Appears: Non-toxic, No Acute Distress, Agitated, Confused - Head Exam Head Exam: ATRAUMATIC, NORMAL INSPECTION, NORMOCEPHALIC - Eye Exam Eye Exam: EOMI, Normal appearance, PERRL - Respiratory Exam Respiratory Exam: Clear to Ausculation Bilateral, NORMAL BREATHING PATTERN. absent: Accessory Muscle Use, Rales, Rhonchi, Wheezes, Respiratory Distress, St ridor - Cardiovascular Exam Cardiovascular Exam: RRR, +S1, +S2. absent: Gallop, Rubs - GI/Abdominal Exam GI & Abdominal Exam: Soft, Normal Bowel Sounds. absent: Firm, Guarding, Rigid, Tenderness - Extremities Exam Extremities Exam: Normal Inspection. absent: Calf Tenderness, Pedal Edema - Back Exam Back Exam: NORMAL INSPECTION. absent: CVA tenderness (L), CVA tenderness (R) - Neurological Exam Neurological Exam: Alert, Altered, Awake Additional comments: Pt refused to comply with neuro exam, no facial droop or slurred speech noted, pt was able to move all extremities freely without limitation of pain or weakness - Psychiatric Exam Additional comments: Denies SI/HI - Skin Skin Exam: Dry, Normal Color, Warm Assessment and Plan - Assessment and Plan (Free Text) Assessment: Pt is a 68 yo F with pmhx of rheumatoid arthritis, chronic back pain, anxiety, HTN and depression who presents to the ED for AMS. Head CT was negative for intracranial path, CXR and UA was also negative. Pt continues to have delusions. Plan: 1) AMS - 2/2 Delerium vs Psychosis, less likely infectious due to pt being afebrile, no WBC count and UA and CXR are negative for infectious process - Pt sees Dr. Titi Reyes as her psychiatrist - Per pts pharmacy she just had her celexa picked up on 08/04/18 - Psychiatry consult, will await further recs - Ammonia level is low - UDS - Positive for benzos, and cannabis 2) Hyponatremia: - Pts Na is 127, repeat BMP is 128 - f/u urine Na, Urine osms - Will continue to monitor 3) Hx of Chronic Back Pain: - Hold flexeril and Percocet since pt is not complaining of pain at this time 4) Hx of HTN - Cont pts home lopression now and lisinopril in AM 5) Hx of Anxiety: - Switched pts xanax from 2mg scheduled to 2 mg PRN PPX: DVT: SCDs Regular Diet Case Seen and discussed with Dr. Jonathan Hernandez, PGY-1 <Camila Castillo - Last Filed: 08/10/18 18:07> Objective - Vital Signs/Intake and Output Vital Signs (last 24 hours): Temp Pulse Resp BP Pulse Ox 98.0 F 77 20 135/83 100 08/09/18 18:43 08/10/18 17:52 08/09/18 22:28 08/10/18 17:52 08/09/18 18:43 Intake and Output: 08/10/18 08/10/18 06:59 18:59 Intake Total 430 Balance 430 - Medications Medications: Current Medications Alprazolam (Xanax) 2 mg PO BID PRN PRN Reason: Anxiety Last Admin: 08/10/18 09:28 Dose: 2 mg Aspirin (Ecotrin) 81 mg PO DAILY [facility] Last Admin: 08/10/18 09:28 Dose: 81 mg Citalopram Hydrobromide (Celexa) 40 mg PO DAILY [facility] Last Admin: 08/10/18 09:28 Dose: 40 mg Gabapentin (Neurontin) 200 mg PO BID [facility]; Protocol Last Admin: 08/10/18 17:52 Dose: 200 mg Lisinopril (Zestril) 20 mg PO DAILY [facility] Last Admin: 08/10/18 09:45 Dose: 20 mg Metoprolol Tartrate (Lopressor) 25 mg PO BID [facility] Last Admin: 08/10/18 17:52 Dose: 25 mg Nicotine (Nicoderm Cq) 1 patch TD DAILY [facility] Last Admin: 08/10/18 09:46 Dose: 1 patch Quetiapine Fumarate (Seroquel) 25 mg PO HS [facility]; Protocol - Labs Labs: 08/10/18 07:00 08/10/18 14:17 Attending/Attestation - Attestation I have personally seen and examined this patient.: Yes I have fully participated in the care of the patient.: Yes I have reviewed all pertinent clinical information, including history, physical exam and plan: Yes Notes (Text): 08/10/18 18:04 68 year old female with past medical history of rheumatoid arthritis, anxiety, depression and hypertension who presents with AMS/delirium. CT head was negative. UA not suggestive of UTI. Urine drug screen positive for benzodiazepines and cannabinoids. Today patient is still agitated and confused. Psychiatry evaluation was requested; will follow up on recommendations. Hyponatremia this morning noted. Urine studies, osmos and repeat BMP ordered for this afternoon. Continue with home medications for hypertension. Camila Castillo MD Hospitalist.
--- NOTE | 2018-08-10 20:48 | CON ---
DATE: 08/10/2018 HISTORY OF PRESENT ILLNESS: The patient is a 68-year-old female. The patient has a history of anxiety and depression. The patient was admitted to the medical site for evaluation of altered mental status, psych consult was called because the patient had psychotic, delusional and restless. The patient was seen and examined today. The patient was very confused, restless, and the patient was "fighting with zombies overnight". The patient presented to be confused, The patient obviously is paranoid and psychotic. The patient was talking that people are talking about her, obviously nobody was talking about her and was doing the regular routine distribution of the medication. The patient was making remarks at us, because "they chopped body parts and they are stealing my medications." Obviously, nobody "chop" any body parts and nobody is stealing medications. The patient is psychotic, disorganized, and delusional. PHYSICAL EXAMINATION: VITAL SIGNS: Stable. Temperature 98.0, pulse is 98, blood pressure 148/119, respirations 18, and oxygen saturation is 100. MENTAL STATUS EXAMINATION: The patient appears to be alert. The patient does not know where she is. The patient is psychotic and delusional. The patient is not able to describe her mood. Thought process is circumstantial, tangential, psychotic, and disorganized. Thought content, the patient obviously hallucinating, paranoid and disorganized. Insight and judgment seems to be impaired. Impulses are unpredictable. MEDICATIONS: Reviewed. The patient is on Xanax 2 mg twice a day as needed, aspirin, the patient is on Celexa 40 mg daily, Neurontin 200 mg twice a day, Zestril, Lopressor, methadone, and Seroquel will be started for psychotic symptoms. SOCIAL HISTORY: The patient smokes about 2 packs a day. LABORATORY DATA: Reviewed. White blood cells are elevated. Chemistry reviewed. Sodium 128. Urinalysis showed blood as well as bilirubin. Toxicology was positive for benzodiazepine as well as cannabis. Microbiology was reviewed. Previous picture reviewed as well. The patient was seen by Dr. Odonnell in 12/2017. The patient was on Celexa and Restoril 30 mg. The patient also on Percocet and Restoril. The patient then was confused and had stimuli presentation. IMPRESSION AND PLAN: Most likely, the patient is in delirium stage, leukocytosis there, withdrawals cannot exclude the patient when misusing or abusing benzodiazepines with lot of pain medication. Also Celexa was started. We will initiate Seroquel. Medical team needs to work off delirium. We will try to suggest neurological evaluation. We will follow up and advise accordingly. Thank you very much for letting me to participate in the care of your patient. Should you have any questions, give me a call back. Rosalba Lackey MD [facility]
[2018-08-11 07:12] LABS: BASO # 0.03 K/mm3 (0.0-2.0); BASO % 0.3 % (0.0-3.0); EOS # 0.2 (0.0-0.7); EOS % 1.8 % (1.5-5.0); GRAN # 4.74 (1.4-6.5); GRAN % 46.5 % (50.0-68.0); HEMOGLOBIN 12.5 g/dL (12.0-16.0); LYMPH # 4.3 (1.2-3.4); LYMPH % 42.3 % (22.0-35.0); MEAN CELL VOLUME 89.8 fl (80.0-105.0); MEAN CORPUSCULAR HEMOGLOBIN 31.1 pg (25.0-35.0); MEAN CORPUSCULAR HGB CONC 34.6 g/dl (31.0-37.0); MEAN PLATELET VOLUME 8.3 fl (7.0-11.0); MONO # 0.9 (0.1-0.6); MONO % 9.1 % (1.0-6.0); RBC 4.02 10^6/uL (3.5-6.1); WHITE BLOOD COUNT 10.2 10^3/uL (4.5-11.0)
[2018-08-11 07:41] LABS: ALB/GLOB RATIO 1.5 (1.1-1.8); ALBUMIN 4.3 g/dL (3.0-4.8); ALT/SGPT 28 U/L (7-56); AST/SGOT 28 U/L (14-36); BLOOD UREA NITROGEN 13 mg/dL (7-21); CALCIUM 9.8 mg/dL (8.4-10.5); GFR NON-AFRICAN AMERICAN > 60
[2018-08-11] MEDS ORDERED: Oxycodone/Acetaminophen 5/325 mg Tab PO PRN (12:44)
--- NOTE | 2018-08-11 14:10 | CP.PCM.PCO ---
Physician Communication Note - Physician Communication Note Physician Communication Note: Per Psych, pt willing to sign herself to 5B, awaiting medical clearance
--- NOTE | 2018-08-11 17:43 | CP.PCM.PN ---
<Pb Hernandez - Last Filed: 08/11/18 22:27> Subjective - Date & Time of Evaluation Date of Evaluation: 08/11/18 Time of Evaluation: 22:27 - Subjective Subjective: Pb Hernandez, PGY-1 Medicine Progress Note for Dr. Castillo: Pt was seen and examined this AM at bedside. Pt continues to be altered, agitated though she did not express any delusions through the exam we had with the pt. The pt did not wish to cooperate with answering ROS questions and became increasingly agitated at different attempts of obtaining a history. Objective - Vital Signs/Intake and Output Vital Signs (last 24 hours): Temp Pulse Resp BP Pulse Ox 97.4 F L 63 18 132/69 96 08/11/18 14:00 08/11/18 14:00 08/11/18 14:00 08/11/18 14:00 08/11/18 14:00 Intake and Output: 08/11/18 08/11/18 06:59 18:59 Intake Total 180 Balance 180 - Medications Medications: Current Medications Alprazolam (Xanax) 2 mg PO BID PRN PRN Reason: Anxiety Last Admin: 08/11/18 11:27 Dose: 2 mg Aspirin (Ecotrin) 81 mg PO DAILY [facility] Last Admin: 08/11/18 10:29 Dose: 81 mg Citalopram Hydrobromide (Celexa) 40 mg PO DAILY [facility] Last Admin: 08/11/18 10:29 Dose: 40 mg Cyclobenzaprine HCl (Flexeril) 5 mg PO DAILY [facility] Gabapentin (Neurontin) 300 mg PO TID [facility]; Protocol Last Admin: 08/11/18 14:31 Dose: 300 mg Lisinopril (Zestril) 20 mg PO DAILY [facility] Last Admin: 08/11/18 10:30 Dose: 20 mg Metoprolol Tartrate (Lopressor) 25 mg PO BID [facility] Last Admin: 08/11/18 10:29 Dose: 25 mg Nicotine (Nicoderm Cq) 1 patch TD DAILY [facility] Last Admin: 08/11/18 10:29 Dose: 1 patch Oxycodone/Acetaminophen (Percocet 5/325 Mg Tab) 1 tab PO BID PRN PRN Reason: Pain, severe (8-10) Stop: 08/14/18 12:45 Quetiapine Fumarate (Seroquel) 50 mg PO HS [facility]; Protocol - Labs Labs: 08/11/18 07:00 08/11/18 07:00 - Constitutional Appears: Non-toxic, No Acute Distress, Agitated, Confused - Head Exam Head Exam: ATRAUMATIC, NORMAL INSPECTION, NORMOCEPHALIC - Eye Exam Eye Exam: EOMI, Normal appearance, PERRL - Respiratory Exam Respiratory Exam: Clear to Ausculation Bilateral, Respiratory Distress, NORMAL BREATHING PATTERN. absent: Accessory Muscle Use, Rales, Rhonchi, Wheezes - Cardiovascular Exam Cardiovascular Exam: RRR, +S1, +S2. absent: Gallop, Rubs - GI/Abdominal Exam GI & Abdominal Exam: Soft, Normal Bowel Sounds. absent: Firm, Guarding, Rigid, Tenderness - Extremities Exam Extremities Exam: Normal Inspection. absent: Calf Tenderness, Pedal Edema - Back Exam Back Exam: NORMAL INSPECTION. absent: CVA tenderness (L), CVA tenderness (R) - Neurological Exam Neurological Exam: Alert, Awake - Psychiatric Exam Psychiatric exam: Agitated - Skin Skin Exam: Dry, Normal Color, Warm Assessment and Plan - Assessment and Plan (Free Text) Assessment: Pt is a 68 yo F with pmhx of rheumatoid arthritis, chronic back pain, anxiety, HTN and depression who presents to the ED for AMS. Head CT was negative for intracranial path, CXR and UA was also negative. Pt was given seroquel per psych. Pt was accepted to psych team, for voluntary admission, but then had changed mind later in the day. Per psych they will attempt to talk to pt again about psych admission. Plan: 1) AMS - 2/2 Delerium vs Psychosis - Pt sees Dr. Titi Reyes as her psychiatrist - Per pts pharmacy she just had her celexa picked up on 08/04/18 - Psychiatry consult - added seroquel, will reattempt for inpt psych admission - Ammonia level is low - UDS - Positive for benzos, and cannabis 2) Hyponatremia: - Pts Na is 127, repeat BMP is 128 - f/u urine Na, Urine osms - Will continue to monitor 3) Hx of Chronic Back Pain: - Pts home flexeril and percocet were restarted on lower dose 4) Hx of HTN - Cont pts home lopression and lisinopril 5) Hx of Anxiety: - Switched pts xanax from 2mg BID PPX: DVT: SCDs Regular Diet Case Seen and discussed with Dr. Jonathan Hernandez, PGY-1 <Camila Castillo - Last Filed: 08/12/18 08:55> Objective - Vital Signs/Intake and Output Vital Signs (last 24 hours): Temp Pulse Resp BP Pulse Ox 97.8 F 54 L 19 111/64 95 08/12/18 06:00 08/12/18 06:00 08/12/18 06:00 08/12/18 06:00 08/12/18 06:00 Intake and Output: 08/12/18 08/12/18 06:59 18:59 Intake Total 240 Balance 240 - Medications Medications: Current Medications Alprazolam (Xanax) 2 mg PO BID PRN PRN Reason: Anxiety Last Admin: 08/12/18 06:48 Dose: 2 mg Aspirin (Ecotrin) 81 mg PO DAILY [facility] Last Admin: 08/11/18 10:29 Dose: 81 mg Citalopram Hydrobromide (Celexa) 40 mg PO DAILY [facility] Last Admin: 08/11/18 10:29 Dose: 40 mg Cyclobenzaprine HCl (Flexeril) 5 mg PO DAILY [facility] Gabapentin (Neurontin) 300 mg PO TID [facility]; Protocol Last Admin: 08/11/18 18:06 Dose: 300 mg Lisinopril (Zestril) 20 mg PO DAILY [facility] Last Admin: 08/11/18 10:30 Dose: 20 mg Metoprolol Tartrate (Lopressor) 25 mg PO BID [facility] Last Admin: 08/11/18 18:07 Dose: 25 mg Nicotine (Nicoderm Cq) 1 patch TD DAILY [facility] Last Admin: 08/11/18 10:29 Dose: 1 patch Oxycodone/Acetaminophen (Percocet 5/325 Mg Tab) 1 tab PO BID PRN PRN Reason: Pain, severe (8-10) Stop: 08/14/18 12:45 Quetiapine Fumarate (Seroquel) 50 mg PO HS [facility]; Protocol Last Admin: 08/11/18 22:35 Dose: 50 mg - Labs Labs: 08/12/18 07:00 08/12/18 07:00 Attending/Attestation - Attestation I have personally seen and examined this patient.: Yes I have fully participated in the care of the patient.: Yes I have reviewed all pertinent clinical information, including history, physical exam and plan: Yes Notes (Text): 08/11/18 68 year old female with past medical history of rheumatoid arthritis, anxiety, depression and hypertension who presents with AMS/delirium. CT head was negative. UA not suggestive of UTI. Urine drug screen positive for benzodiazepines and cannabinoids. Delirium is improving although patient remains agitated at times. Psychiatry is following and increased seroquel. Plan for possible inpatient psychiatric admission. Hyponatremia and leukocytosis have improved. Continue with home medications for hypertension. Camila Castillo MD Hospitalist.
--- NOTE | 2018-08-11 18:53 | PN ---
DATE: 08/11/2018 SUBJECTIVE: The patient was admitted in confused stage. A psych consult was called because the patient has a history of mental illness as well as history of confusion and the patient presented to be psychotic. Please see initial note for more detailed information. The patient was seen today. There is some mild improvement with the patient presentation. The patient was less psychotic, but still paranoid. As per nursing report, the patient had impression that she had chopped head in her jacket, obviously there is nothing like that happened. The patient presented to be overly excited when this narrative writer talked to her. The patient was willing to sign herself into the psychiatric inpatient unit for further stabilization and observation, but when social work program coordinator tried to obtain informed consent, the patient declined that offer. This narrative writer talked to the patient again. The patient presented to be irritable, obviously change in mental status, most likely the patient is in delirium stage still. LABORATORY DATA: Reviewed. MEDICATIONS: Reviewed. Discussed with attending Dr. Castillo and resident. At present moment, the patient is not committable to [facility]. This narrative writer will increase the dose of Seroquel at the nighttime to 50 mg and we will see from that. Meanwhile, the patient filled medication in [facility]. The patient's medical team was advised to call and confirm medications. The patient reported that she was on temazepam, Xanax as well as Celexa 40 mg. The patient reported that she has her outpatient psychiatrist, Dr. Titi Cunningham, she is planning to see him, but the patient does not know when is her next appointment. MENTAL STATUS EXAMINATION: The patient presented to be confused and has frequent change in mental status. Mood described as not good "I'm angry." Affect was constricted and irritable. Thought process circumstantial and tangential. Thought content, the patient denied visual, auditory, or tactile hallucinations but obviously the patient is in delirium stage and psychotic. Insight and judgment seems to be impaired. Impulses are unpredictable. IMPRESSION: As per history, the patient has history of questionable anxiety. At present moment, the patient is in delirium stage, which is related to polypharmacy and multiple medical issues and possible misuse and overuse of psychotropic medication. PLAN: This narrative writer suggested psych admission. The patient initially agreed with that plan, but declined that offer later on. The patient still in delirium stage. This narrative writer will suggest to increase the dose of Seroquel to 50 mg at the nighttime. We will continue monitoring and advise accordingly. Thank you very much for letting me to participate in the care of your patient. Care of this patient took more than 45 minutes of this narrative writer's time. Rosalba Lackey MD MTDD
[2018-08-12 07:26] LABS: BASO # 0.04 K/mm3 (0.0-2.0); BASO % 0.4 % (0.0-3.0); EOS # 0.3 (0.0-0.7); EOS % 2.9 % (1.5-5.0); GRAN # 5.04 (1.4-6.5); GRAN % 47.7 % (50.0-68.0); HEMOGLOBIN 12.1 g/dL (12.0-16.0); LYMPH # 4.3 (1.2-3.4); LYMPH % 40.3 % (22.0-35.0); MEAN CELL VOLUME 91.6 fl (80.0-105.0); MEAN CORPUSCULAR HEMOGLOBIN 30.8 pg (25.0-35.0); MEAN CORPUSCULAR HGB CONC 33.6 g/dl (31.0-37.0); MEAN PLATELET VOLUME 8.5 fl (7.0-11.0); MONO # 0.9 (0.1-0.6); MONO % 8.7 % (1.0-6.0); RBC 3.93 10^6/uL (3.5-6.1); RED CELL DISTRIBUTION WIDTH 13.1 % (11.5-14.5); WHITE BLOOD COUNT 10.6 10^3/uL (4.5-11.0)
[2018-08-12 07:47] LABS: ALB/GLOB RATIO 1.5 (1.1-1.8); ALBUMIN 4.1 g/dL (3.0-4.8); ALT/SGPT 27 U/L (7-56); AST/SGOT 23 U/L (14-36); BLOOD UREA NITROGEN 20 mg/dL (7-21); CALCIUM 9.9 mg/dL (8.4-10.5); GFR NON-AFRICAN AMERICAN > 60
[2018-08-12 08:11] VITALS: BP 111/64; PULSE 54; RESP 19; TEMP 97.8; O2SAT 95
--- NOTE | 2018-08-12 14:01 | CP.PCM.DIS ---
<Pb Hernandez - Last Filed: 08/13/18 12:57> Provider - Provider Date of Admission: 08/09/18 17:17 Attending physician: Camila Castillo MD Primary care physician: Sydnee Stern MD Consults: 08/09/18 18:19 Psychiatry Consult Routine Comment: Consulting Provider: Rosalba Lackey Consulting Physician: Rosalba Lackey Reason for Consult: tangential speech; anxious; not taking her meds Time Spent in preparation of Discharge (in minutes): 45 Diagnosis - Discharge Diagnosis (1) Psychosis Status: Acute (2) Delirium Status: Acute Hospital Course - Lab Results Lab Results: Micro Results 08/09/18 17:00 Urine,Clean Catch Urine Culture - Final No Growth (<1,000 CFU/ML) Most Recent Lab Values WBC 10.6 10^3/uL (4.5-11.0) 08/12/18 07:00 RBC 3.93 10^6/uL (3.5-6.1) 08/12/18 07:00 Hgb 12.1 g/dL (12.0-16.0) 08/12/18 07:00 Hct 36.0 % (36.0-48.0) 08/12/18 07:00 MCV 91.6 fl (80.0-105.0) 08/12/18 07:00 MCH 30.8 pg (25.0-35.0) 08/12/18 07:00 MCHC 33.6 g/dl (31.0-37.0) 08/12/18 07:00 RDW 13.1 % (11.5-14.5) 08/12/18 07:00 Plt Count 441 10^3/uL (120.0-450.0) 08/12/18 07:00 MPV 8.5 fl (7.0-11.0) 08/12/18 07:00 Gran % 47.7 % (50.0-68.0) L 08/12/18 07:00 Lymph % (Auto) 40.3 % (22.0-35.0) H 08/12/18 07:00 Deuel % (Auto) 8.7 % (1.0-6.0) H 08/12/18 07:00 Eos % (Auto) 2.9 % (1.5-5.0) 08/12/18 07:00 Baso % (Auto) 0.4 % (0.0-3.0) 08/12/18 07:00 Gran # 5.04 (1.4-6.5) 08/12/18 07:00 Lymph # (Auto) 4.3 (1.2-3.4) H 08/12/18 07:00 Deuel # (Auto) 0.9 (0.1-0.6) H 08/12/18 07:00 Eos # (Auto) 0.3 (0.0-0.7) 08/12/18 07:00 Baso # (Auto) 0.04 K/mm3 (0.0-2.0) 08/12/18 07:00 Sodium 134 mmol/L (132-148) 08/12/18 07:00 Potassium 5.0 mmol/L (3.6-5.0) 08/12/18 07:00 Chloride 98 mmol/L (98-107) 08/12/18 07:00 Carbon Dioxide 32 mmol/L (21-33) 08/12/18 07:00 Anion Gap 9 (10-20) L 08/12/18 07:00 BUN 20 mg/dL (7-21) 08/12/18 07:00 Creatinine 0.9 mg/dl (0.7-1.2) 08/12/18 07:00 Est GFR ( Amer) > 60 08/12/18 07:00 Est GFR (Non-Af Amer) > 60 08/12/18 07:00 Random Glucose 77 mg/dL (70-110) 08/12/18 07:00 Serum Osmolality 257 mosm/kg (272-300) L 08/10/18 12:50 Calcium 9.9 mg/dL (8.4-10.5) 08/12/18 07:00 Magnesium 1.9 mg/dL (1.7-2.2) 08/09/18 13:40 Total Bilirubin 0.2 mg/dL (0.2-1.3) 08/12/18 07:00 AST 23 U/L (14-36) 08/12/18 07:00 ALT 27 U/L (7-56) 08/12/18 07:00 Alkaline Phosphatase 47 U/L (38-126) 08/12/18 07:00 Ammonia < 9 umol/L (9-33) L 08/09/18 17:49 Total Protein 6.8 g/dL (5.8-8.3) 08/12/18 07:00 Albumin 4.1 g/dL (3.0-4.8) 08/12/18 07:00 Globulin 2.7 gm/dL 08/12/18 07:00 Albumin/Globulin Ratio 1.5 (1.1-1.8) 08/12/18 07:00 TSH 3rd Generation 0.58 mIU/mL (0.46-4.68) 08/10/18 07:00 Urine Color Yellow (YELLOW) 08/09/18 16:59 Urine Appearance Clear (CLEAR) 08/09/18 16:59 Urine pH 6.0 (4.7-8.0) 08/09/18 16:59 Ur Specific Rosebud >= 1.030 (1.005-1.035) 08/09/18 16:59 Urine Protein Negative mg/dL (<30 mg/dL) 08/09/18 16:59 Urine Glucose (UA) Negative mg/dL (NEGATIVE) 08/09/18 16:59 Urine Ketones 15 mg/dL (NEGATIVE) H 08/09/18 16:59 Urine Blood Trace-intact (NEGATIVE) H 08/09/18 16:59 Urine Nitrate Negative (NEGATIVE) 08/09/18 16:59 Urine Bilirubin Small (NEGATIVE) H 08/09/18 16:59 Urine Urobilinogen 0.2 E.U./dL (<1 E.U./dL) 08/09/18 16:59 Ur Leukocyte Esterase Negative Ashlee/uL (NEGATIVE) 08/09/18 16:59 Urine RBC 1 - 3 /hpf (0-2) H 08/09/18 16:59 Urine WBC 0 - 2 /hpf (0-6) 08/09/18 16:59 Ur Epithelial Cells 3 - 4 /hpf (0-5) 08/09/18 16:59 Urine Bacteria Few /hpf (NONE) 08/09/18 16:59 Salicylates < 1 mg/dL (2.0-20.0) L 08/09/18 17:57 Urine Opiates Screen Negative (NEGATIVE) 08/09/18 16:59 Urine Methadone Screen Negative (NEGATIVE) 08/09/18 16:59 Acetaminophen < 10.0 ug/ml (10.0-20.0) L 08/09/18 17:57 Ur Barbiturates Screen Negative (NEGATIVE) 08/09/18 16:59 Ur Phencyclidine Scrn Negative (NEGATIVE) 08/09/18 16:59 Ur Amphetamines Screen Negative (NEGATIVE) 08/09/18 16:59 U Benzodiazepines Scrn Positive (NEGATIVE) H 08/09/18 16:59 U Oth Cocaine Metabols Negative (NEGATIVE) 08/09/18 16:59 U Cannabinoids Screen Positive (NEGATIVE) H 08/09/18 16:59 Alcohol, Quantitative < 10 mg/dL (0-10) 08/09/18 13:40 - Hospital Course Hospital Course: Upon Admission: Pt is a 68 yo F with pmhx of rheumatoid arthritis, chronic back pain, anxiety, HTN and depression who presents to the ED for AMS. Pt is actively confused, tangential and is having delusions of people having body parts and heads that are not matching. Pt also claims that her meds have run out but when confirmed by pharmacy, and by looking at recent visits she was here for a similar problem and had her medication filled and picked up within the past week. Pts PMD, Sydnee Mchugh was called and stated that this was something new for the pt. Further HPI and ROS could not be obtained due to pts current confused and agitated state. Other Hx was obtained through chart review. At this time Pt denies SI/HI. Hospital Course: Pt was being worked up for AMS 2/2 delerium vs psychosis vs infectious cause. Pt had CXR done in ED which was negative for an infectious process, as was pts UA. Pt has remained afebrile during her stay and WBC stayed wnl for a majority of her stay as well. After medical causes of delerium vs psychosis were ruled out psychiatry was consulted to further evaluate the pt. Pts drug screen was noted to be positive for benzos (which she is noted to be taking as a home medication) and cannabis. Per psychiatry pt is noted to be in an episode of psychosis with d elerium. Psychiatry added on seroquel for the pt and was re-evaluated the next day. Pt still showed some signs of psychosis and delerium with some agitation. Pts seroquel was increased per psych. Pt was then re-evaluated again and was noted to be no longer having any active delusions. Pt apologized for her previous actions. Pt was offered voluntary inpt psychiatric admission which the pt refused. Per psych the pt was cleared for discharge with the addition of seroquel. Pt was informed of the plan for discharge and the pt expressed understanding and agreement of the plan for discharge. All of the pts questions and concerns were addressed prior to d/c. Pt was informed about the importance of follow up with her already established psychiatrist Dr. Reyes. Upon Discharge: Pt was given the following directions upon discharge from the hospital: Please follow up with primary care doctor, Jarred Bates upon discharge within 3-5 days from psych. Please take your newly prescribed medication, Seroquel 50mg at bedtime as directed. Please also follow up with your psychiatrist, Dr. Reyes within 3-5 days upon discharge. Please refrain from drug use such as marijuana. If you experience new or worsening symptoms then please return to the emergency department. Discharge Exam - Head Exam Head Exam: ATRAUMATIC, NORMAL INSPECTION, NORMOCEPHALIC - Eye Exam Eye Exam: EOMI, Normal appearance, PERRL - Respiratory Exam Respiratory Exam: Clear to PA & Lateral, NORMAL BREATHING PATTERN, UNREMARKABLE. absent: Accessory Muscle Use, Rales, Rhonchi, Wheezes, Respiratory Distress, Stridor - Cardiovascular Exam Cardiovascular Exam: RRR, +S1, +S2. absent: Gallop, Rubs, Systolic Murmur - GI/Abdominal Exam GI & Abdominal Exam: Normal Bowel Sounds, Soft, Unremarkable. absent: Distended, Firm, Guarding, Tenderness - Extremities Exam Extremities exam: normal capillary refill, normal inspection, pedal pulses present - Back Exam Back exam: NORMAL INSPECTION. absent: CVA tenderness (L), CVA tenderness (R) - Neurological Exam Neurological exam: Alert, Oriented x3 - Psychiatric Exam Psychiatric exam: Normal Affect, Normal Mood - Skin Skin Exam: Dry, Intact, Normal Color, Warm Discharge Plan - Discharge Medications Prescriptions: Citalopram Hydrobromide [Celexa] 40 mg PO DAILY 7 Days #7 tablet Nicotine 21 mg/24 hr [Nicoderm Cq] 1 patch TD DAILY 14 Days #14 patch QUEtiapine [Seroquel] 50 mg PO HS 7 Days #7 tab - Follow Up Plan Condition: STABLE Disposition: HOME/ ROUTINE Instructions: Pneumococcal Conjugate Vaccine (10-Valent), Generalized Anxiety Disorder (DC), Flu Vaccine Additional Instructions: Please follow up with primary care doctor, Jarred Bates upon discharge within 3-5 days from psych. Please take your newly prescribed medication, Seroquel 50mg at bedtime as directed. Please also follow up with your psychiatrist, Dr. Reyes within 3-5 days upon discharge. Please refrain from drug use such as marijuana. If you experience new or worsening symptoms then please return to the emergency department. Referrals: Sydnee Stern MD [Primary Care Provider] - <Camila Castillo - Last Filed: 08/13/18 13:49> Provider - Provider Date of Admission: 08/09/18 17:17 Attending physician: Camila Castillo MD Primary care physician: Sydnee Stern MD Consults: 08/09/18 18:19 Psychiatry Consult Routine Comment: Consulting Provider: Rosalba Lackey Consulting Physician: Rosalba Lackey Reason for Consult: tangential speech; anxious; not taking her meds Hospital Course - Lab Results Lab Results: Micro Results 08/09/18 17:00 Urine,Clean Catch Urine Culture - Final No Growth (<1,000 CFU/ML) Most Recent Lab Values WBC 10.6 10^3/uL (4.5-11.0) 08/12/18 07:00 RBC 3.93 10^6/uL (3.5-6.1) 08/12/18 07:00 Hgb 12.1 g/dL (12.0-16.0) 08/12/18 07:00 Hct 36.0 % (36.0-48.0) 08/12/18 07:00 MCV 91.6 fl (80.0-105.0) 08/12/18 07:00 MCH 30.8 pg (25.0-35.0) 08/12/18 07:00 MCHC 33.6 g/dl (31.0-37.0) 08/12/18 07:00 RDW 13.1 % (11.5-14.5) 08/12/18 07:00 Plt Count 441 10^3/uL (120.0-450.0) 08/12/18 07:00 MPV 8.5 fl (7.0-11.0) 08/12/18 07:00 Gran % 47.7 % (50.0-68.0) L 08/12/18 07:00 Lymph % (Auto) 40.3 % (22.0-35.0) H 08/12/18 07:00 Deuel % (Auto) 8.7 % (1.0-6.0) H 08/12/18 07:00 Eos % (Auto) 2.9 % (1.5-5.0) 08/12/18 07:00 Baso % (Auto) 0.4 % (0.0-3.0) 08/12/18 07:00 Gran # 5.04 (1.4-6.5) 08/12/18 07:00 Lymph # (Auto) 4.3 (1.2-3.4) H 08/12/18 07:00 Deuel # (Auto) 0.9 (0.1-0.6) H 08/12/18 07:00 Eos # (Auto) 0.3 (0.0-0.7) 08/12/18 07:00 Baso # (Auto) 0.04 K/mm3 (0.0-2.0) 08/12/18 07:00 Sodium 134 mmol/L (132-148) 08/12/18 07:00 Potassium 5.0 mmol/L (3.6-5.0) 08/12/18 07:00 Chloride 98 mmol/L (98-107) 08/12/18 07:00 Carbon Dioxide 32 mmol/L (21-33) 08/12/18 07:00 Anion Gap 9 (10-20) L 08/12/18 07:00 BUN 20 mg/dL (7-21) 08/12/18 07:00 Creatinine 0.9 mg/dl (0.7-1.2) 08/12/18 07:00 Est GFR ( Amer) > 60 08/12/18 07:00 Est GFR (Non-Af Amer) > 60 08/12/18 07:00 Random Glucose 77 mg/dL (70-110) 08/12/18 07:00 Serum Osmolality 257 mosm/kg (272-300) L 08/10/18 12:50 Calcium 9.9 mg/dL (8.4-10.5) 08/12/18 07:00 Magnesium 1.9 mg/dL (1.7-2.2) 08/09/18 13:40 Total Bilirubin 0.2 mg/dL (0.2-1.3) 08/12/18 07:00 AST 23 U/L (14-36) 08/12/18 07:00 ALT 27 U/L (7-56) 08/12/18 07:00 Alkaline Phosphatase 47 U/L (38-126) 08/12/18 07:00 Ammonia < 9 umol/L (9-33) L 08/09/18 17:49 Total Protein 6.8 g/dL (5.8-8.3) 08/12/18 07:00 Albumin 4.1 g/dL (3.0-4.8) 08/12/18 07:00 Globulin 2.7 gm/dL 08/12/18 07:00 Albumin/Globulin Ratio 1.5 (1.1-1.8) 08/12/18 07:00 TSH 3rd Generation 0.58 mIU/mL (0.46-4.68) 08/10/18 07:00 Urine Color Yellow (YELLOW) 08/09/18 16:59 Urine Appearance Clear (CLEAR) 08/09/18 16:59 Urine pH 6.0 (4.7-8.0) 08/09/18 16:59 Ur Specific Rosebud >= 1.030 (1.005-1.035) 08/09/18 16:59 Urine Protein Negative mg/dL (<30 mg/dL) 08/09/18 16:59 Urine Glucose (UA) Negative mg/dL (NEGATIVE) 08/09/18 16:59 Urine Ketones 15 mg/dL (NEGATIVE) H 08/09/18 16:59 Urine Blood Trace-intact (NEGATIVE) H 08/09/18 16:59 Urine Nitrate Negative (NEGATIVE) 08/09/18 16:59 Urine Bilirubin Small (NEGATIVE) H 08/09/18 16:59 Urine Urobilinogen 0.2 E.U./dL (<1 E.U./dL) 08/09/18 16:59 Ur Leukocyte Esterase Negative Ashlee/uL (NEGATIVE) 08/09/18 16:59 Urine RBC 1 - 3 /hpf (0-2) H 08/09/18 16:59 Urine WBC 0 - 2 /hpf (0-6) 08/09/18 16:59 Ur Epithelial Cells 3 - 4 /hpf (0-5) 08/09/18 16:59 Urine Bacteria Few /hpf (NONE) 08/09/18 16:59 Salicylates < 1 mg/dL (2.0-20.0) L 08/09/18 17:57 Urine Opiates Screen Negative (NEGATIVE) 08/09/18 16:59 Urine Methadone Screen Negative (NEGATIVE) 08/09/18 16:59 Acetaminophen < 10.0 ug/ml (10.0-20.0) L 08/09/18 17:57 Ur Barbiturates Screen Negative (NEGATIVE) 08/09/18 16:59 Ur Phencyclidine Scrn Negative (NEGATIVE) 08/09/18 16:59 Ur Amphetamines Screen Negative (NEGATIVE) 08/09/18 16:59 U Benzodiazepines Scrn Positive (NEGATIVE) H 08/09/18 16:59 U Oth Cocaine Metabols Negative (NEGATIVE) 08/09/18 16:59 U Cannabinoids Screen Positive (NEGATIVE) H 08/09/18 16:59 Alcohol, Quantitative < 10 mg/dL (0-10) 08/09/18 13:40 Attending/Attestation - Attestation I have personally seen and examined this patient.: Yes I have fully participated in the care of the patient.: Yes I have reviewed all pertinent clinical information, including history, physical exam and plan: Yes Notes (Text): 08/13/18 13:42 68 year old female with past medical history of rheumatoid arthritis, anxiety, depression and hypertension who presented with AMS/delirium. CT head was negative. UA not suggestive of UTI. Urine drug screen positive for benzodiazepines and cannabinoids. She was seen by psychiatry who added seroquel. Patient's agitation and delirium began to improve. She was offered voluntary inpatient psychiatric admission which she declined. She is cleared for discharge by psychiatrist with outpatient follow up. Patient is discharged home to follow up with pmd. Follow up with psychiatrist. Daughter was called and updated on hospital course. Camila Castillo MD Hospitalist.
--- NOTE | 2018-08-12 14:08 | CON ---
DATE: 08/12/2018 HISTORY OF PRESENT ILLNESS: The patient is a 68-year-old female with a history of anxiety and depression. Psychiatry has been consulting her on medical side due to psychosis, delusions, and restlessness on the unit. The patient was acutely delusional when Dr. Lackey visited her on 08/10/2018. She was noted to be paranoid and disorganized, was difficult to redirect and actively hallucinating at that time. Dr. Lackey met with her again the next day and she noticed some improvement. She was less psychotic, less disorganized, still paranoid. She thought that the patient was delusional. The patient had a delusion that the nursing staff is against her and had initially agreed to sign herself into the Psychiatry unit, however, eventually refused to sign in. She was irritable and considered to be still delirious at that time of Dr. Lackey's visit yesterday. I met with the patient at bedside this morning and she is a lot calmer based on prior reports. She is able to inform me what the current location is, month, and year, and she reports that she is doing much better. She indicates that she wants to get better and get out of here, and she continues to defer on any psychiatric admission. The patient tells me that she sees Dr. Cunningham and plans to see him when she is eventually discharged. She denies any hallucinations. She denies anything that anybody is out to get her; however, she feels that she was unfairly called a nutjob and she does not appear to have much memory of her prior hallucinations or delusions. She appears labile, mildly annoyed, but she does not escalate during the course of our conversation. She does not appear to be overly engaged with having a conversation with Psychiatry, but she does not appear to be any danger to others, she does not make any threats, she does not appear to be overly paranoid. She denies any thoughts to harm herself or harm anybody else. There have been no major behavioral issues. Her insight and judgment are improving. Relevant psychiatric medications include Xanax 2 mg orally two times a day as needed, Celexa 40 mg daily, Seroquel 50 mg as scheduled. Labs and vitals were reviewed. The patient is demonstrating improving delirium. She also has a history of depression and anxiety. It does not appear that these specific symptoms are contributory to her presentation at this time except for anxiety/panic on the unit. RECOMMENDATIONS: Again, when this writer technical publications suggested Psychiatry admission, the patient deferred again. The patient does not meet criteria for involuntary admission and she does not want to undergo psychiatric care, indicating that she would follow up with Dr. Cunningham once she is medically cleared. At this time, Psychiatry will sign-off. Please reconsult as needed. Vinny Regalado MD
== END 2018-08-12 16:12 | disposition home or self-care (01) | DRG 948 ==
LOC: ED 11:53 → ERH 17:17 → 5RSO 22:19
PROVIDERS: ADMIT Internal Medicine; ATTEND Internal Medicine
DX: R41.0 Disorientation, unspecified (principal); E87.1 Hypo-osmolality and hyponatremia; F22 Delusional disorders; M06.9 Rheumatoid arthritis, unspecified; M54.9 Dorsalgia, unspecified; G89.29 Other chronic pain; F41.9 Anxiety disorder, unspecified; F32.9 Major depressive disorder, single episode, unspecified; I10 Essential (primary) hypertension; D72.829 Elevated white blood cell count, unspecified; F17.210 Nicotine dependence, cigarettes, uncomplicated

== ENCOUNTER 2018-08-24 10:45 | Inpatient (IN) | payer MEDICARE, MEDICAID ==
[2018-08-24] MEDS ORDERED: Sodium Chloride 0.9% 1,000 ML IV STA (11:20)
[2018-08-24] MEDS ORDERED: Albuterol-Ipratrop 3 mg / 0.5 (3 ml) UD IH STA (11:21)
--- NOTE | 2018-08-24 11:26 | ED PDOC ---
Arrival/HPI - General Chief Complaint: Flu-like Symptoms Time Seen by Provider: 08/24/18 11:07 Historian: Patient - History of Present Illness Narrative History of Present Illness (Text): 68 y/o F c PMHx rheumatoid arthritis, chronic back pain, anxiety, HTN and depression p/w cough, shortness of breath x 3 days which she states has been keeping her up at night. She reports coughing up yellow/brown sputum. Denies fever, chills, chest pain, abdominal pain, vomiting, diarrhea, dysuria. Patient with previous admission earlier this month for delirium which resolved after Seroquel administration in consultation with psychiatry. Past Medical History - Provider Review Nursing Documentation Reviewed: Yes - Past History Past History: No Previous - Infectious Disease Hx of Infectious Diseases: None - Cardiac Hx Cardiac Disorders: No - Pulmonary Hx Respiratory Disorders: No - Neurological Hx Neurological Disorder: No - HEENT Other/Comment: reading glasses - Renal Hx Renal Disorder: No - Endocrine/Metabolic Hx Endocrine Disorders: No - Hematological/Oncological Hx Blood Disorders: No Other/Comment: left breast lumpectomy; benign - Integumentary Hx Dermatological Disorder: No - Musculoskeletal/Rheumatological Hx Falls: No Hx Herniated Disk: Yes Hx Osteoarthritis: Yes - Gastrointestinal Hx Gastrointestinal Disorders: No - Genitourinary/Gynecological Hx Sexually Transmitted Diseases: No - Psychiatric Hx Anxiety: Yes Hx Panic Disorder: Yes Hx Substance Use: No - Surgical History Hx Hysterectomy: Yes Other/Comment: benign tumor removed left breast - Anesthesia Hx Anesthesia: Yes Hx Anesthesia Reactions: No Hx Malignant Hyperthermia: No Family/Social History - Physician Review Nursing Documentation Reviewed: Yes Family/Social History: No Known Family HX Smoking Status: Heavy Smoker > 10 Cigarettes Daily Hx Alcohol Use: Yes Hx Substance Use: No Allergies/Home Meds Allergies/Adverse Reactions: Allergies No Known Allergies Allergy (Verified 03/27/18 21:45) Home Medications: Home Meds Medication Instructions Recorded Confirmed RX: Cyclobenzaprine [Flexeril] 10 mg PO DAILY PRN 01/27/18 08/09/18 RX: Alprazolam [Xanax] 2 mg PO BID 08/09/18 08/09/18 RX: Gabapentin [Neurontin] 100 mg PO BID 08/09/18 08/09/18 RX: Oxycodone HCl/Acetaminophen 10 - 325 mg PO BID PRN 08/09/18 08/09/18 [Percocet 10-325 mg Tablet] RX: Temazepam [Restoril] 30 mg PO HS 08/09/18 08/09/18 RX: Famotidine [Pepcid] 20 mg PO DAILY 08/11/18 08/11/18 RX: Ketorolac Tromethamine 10 mg PO DAILY PRN 08/11/18 08/11/18 [Toradol] Review of Systems - Physician Review All systems were reviewed & negative as marked: Yes - Review of Systems Constitutional: absent: Fevers Cardiovascular: absent: Chest Pain Physical Exam - Physical Exam Narrative Physical Exam (Text): Gen: Coughing frequently Head: NC/AT Eyes: PERRL ENT: MMM Neck: Supple Chest: No tenderness CV: Regular rate Lungs: CTA b/l Abd: Soft, NT Back: No CVA tenderness Extremities: No edema Skin: No rash Neuro: Alert, no focal deficit Vital Signs Reviewed: Yes Vital Signs Temp Pulse Resp BP Pulse Ox 08/24/18 11:01 98.4 F 80 19 175/85 H 98 Temperature: Afebrile Blood Pressure: Hypertensive Pulse: Regular Respiratory Rate: Normal Appearance: Positive for: Well-Appearing, Non-Toxic, Comfortable Pain Distress: Mild Mental Status: Positive for: Alert and Oriented X 3 Medical Decision Making ED Course and Treatment: Differential after H&P includes influenza vs other viral illness vs PNA. Discussed with Dr. Stern who states patient develops the muscle spasms that she is now exhibiting when her sodium decreases. Dr. Wright accepts patient to his service. CXR no acute disease. - RAD Interpretation Radiology Orders: 08/24/18 11:20 CHEST PORTABLE [RAD] Stat - EKG Interpretation EKG Interpretation (Text): 08/24/18 11:29:47 EKG: Ordered, reviewed, and independently interpreted the EKG. Rate : 73 BPM Rhythm : NSR Interpretation : No ST-segment elevations or depressions, no T-wave inversions, normal intervals. Interpreted by ED Physician: Yes Type: 12 lead EKG - Medication Orders Current Medication Orders: Albuterol/Ipratropium (Duoneb 3 Mg/0.5 Mg (3 Ml) Ud) 3 ml IH STAT STA Stop: 08/24/18 11:22 Sodium Chloride (Sodium Chloride 0.9%) 1,000 mls @ 999 mls/hr IV .Q1H1M STA Stop: 08/24/18 12:20 Ketorolac Tromethamine (Toradol) 15 mg IVP STAT STA Stop: 08/24/18 11:21 Ondansetron HCl (Zofran Inj) 8 mg IVP STAT STA Stop: 08/24/18 11:21 - Scribe Statement The provider has reviewed the documentation as recorded by the Scribe Emma Mcdonnell All medical record entries made by the Rayiblazaro were at my direction and personally dictated by me. I have reviewed the chart and agree that the record accurately reflects my personal performance of the history, physical exam, medical decision making, and the department course for this patient. I have also personally directed, reviewed, and agree with the discharge instructions and disposition. Disposition/Present on Arrival - Present on Arrival Any Indicators Present on Arrival: No History of DVT/PE: No History of Uncontrolled Diabetes: No Urinary Catheter: No History of Decub. Ulcer: No History Surgical Site Infection Following: None - Disposition Have Diagnosis and Disposition been Completed?: Yes Diagnosis: Hyponatremia Disposition: HOSPITALIZED Disposition Time: 14:00 Patient Plan: Observation Condition: STABLE
[2018-08-24 11:38] LABS: BASO # 0.01 K/mm3 (0.0-2.0); BASO % 0.1 % (0.0-3.0); EOS % 0.1 % (1.5-5.0); HEMOGLOBIN 11.3 g/dL (12.0-16.0); LYMPH # 1.7 (1.2-3.4); LYMPH % 14.8 % (22.0-35.0); MEAN CELL VOLUME 89.5 fl (80.0-105.0); MEAN CORPUSCULAR HEMOGLOBIN 31.1 pg (25.0-35.0); MEAN CORPUSCULAR HGB CONC 34.8 g/dl (31.0-37.0); MEAN PLATELET VOLUME 8.2 fl (7.0-11.0); MONO # 0.6 (0.1-0.6); MONO % 5.2 % (1.0-6.0); RBC 3.63 10^6/uL (3.5-6.1); RED CELL DISTRIBUTION WIDTH 12.7 % (11.5-14.5); WHITE BLOOD COUNT 11.1 10^3/uL (4.5-11.0)
[2018-08-24 11:49] LABS: INR 1.03; PARTIAL THROMBOPLASTIN TIME 31.6 Seconds (26.9-38.3); PROTHROMBIN TIME 11.6 SECONDS (9.4-12.5)
[2018-08-24 12:00] LABS: ALB/GLOB RATIO 1.3 (1.1-1.8); ALBUMIN 4.2 g/dL (3.0-4.8); ALT/SGPT 23 U/L (7-56); AST/SGOT 19 U/L (14-36); BLOOD UREA NITROGEN 12 mg/dL (7-21); CALCIUM 9.7 mg/dL (8.4-10.5); GFR NON-AFRICAN AMERICAN > 60; LIPASE 60 U/L (23-300)
[2018-08-24 12:11] LABS: B-TYPE NATRIURETIC PEPTIDE 213 pg/mL (0-450); TROPONIN I < 0.01 ng/mL
--- NOTE | 2018-08-24 15:01 | RAD ---
Date of service: 08/24/2018 HISTORY: dyspnea, cough COMPARISON: 08/09/2018 FINDINGS: LUNGS: No active pulmonary disease. PLEURA: No significant pleural effusion identified, no pneumothorax apparent. CARDIOVASCULAR: No atherosclerotic calcification present Normal. OSSEOUS STRUCTURES: No significant abnormalities. VISUALIZED UPPER ABDOMEN: Normal. OTHER FINDINGS: None. IMPRESSION: No active disease. No significant interval change compared to the prior examination(s).
[2018-08-24 17:13] LABS: URINE BILIRUBIN NEGATIVE (NEGATIVE); URINE BLOOD TRACE-LYSED (NEGATIVE); URINE GLUCOSE (UA) NEGATIVE (NEGATIVE); URINE LEUKOCYTE ESTERASE NEGATIVE Leu/uL (NEGATIVE); URINE PROTEIN NEGATIVE mg/dL (<30 mg/dL); URINE UROBILINOGEN 0.2 E.U./dL (<1 E.U./dL)
[2018-08-24 17:14] LABS: URINE APPEARANCE CLEAR (CLEAR); URINE COLOR YELLOW (YELLOW)
[2018-08-24 17:28] LABS: URINE BACTERIA FEW /hpf
--- NOTE | 2018-08-24 17:54 | CARD ---
APPROVED REPORT Date of service: 08/24/2018 EKG Measurement Heart [id number] <Conclusion> Normal sinus rhythm Normal ECG
[2018-08-24] MEDS: Sodium Chloride 0.9% 1,000 ML IV SCH (21:11)
[2018-08-25 04:13] VITALS: BMI 20.5
--- NOTE | 2018-08-25 06:40 | CP.PCM.HP ---
<Stephani Fuller - Last Filed: 08/25/18 19:40> History of Present Illness - History of Present Illness History of Present Illness: Please note history as per EMR as patient is a poor historian 68yo female PMHx Rheumatoid arthritis, chronic back pain, anxiety, HTN and depression presents with cough and SOB for 3 days. Patient reported coughing yellow/brown sputum which was keeping her up at night. She denied fever, chills, chest pain, abdominal pain, vomiting, diarrhea, dysuria. Patient this AM admitted to anxiety and diffuse body aches. Pmhx: Rheumatoid arthritis, chronic back pain, anxiety, HTN and depression Pshx: L breast benign tumor Meds: Celexa 40 po qd, flexeril 10qd, neurotin 100 BID, percocet 10-325, restoril 30, Xanax 2 BID All: NKDA Social: Unable to obtain Fam: Unable to obtain PMD: Sydnee Stern Psych: Dr. Titi Reyes Pharm: August Present on Admission - Present on Admission Any Indicators Present on Admission: No Review of Systems - Review of Systems Systems not reviewed;Unavailable: Altered Mental Status Past Patient History - Infectious Disease Hx of Infectious Diseases: None - Past Social History Smoking Status: Former Smoker - CARDIAC Hx Cardiac Disorders: No - PULMONARY Hx Respiratory Disorders: No - NEUROLOGICAL Hx Neurological Disorder: No - HEENT Other/Comment: reading glasses - RENAL Hx Chronic Kidney Disease: No - ENDOCRINE/METABOLIC Hx Endocrine Disorders: No - HEMATOLOGICAL/ONCOLOGICAL Hx Blood Disorders: No Other/Comment: left breast lumpectomy; benign - INTEGUMENTARY Hx Dermatological Problems: No - MUSCULOSKELETAL/RHEUMATOLOGICAL Hx Falls: No - GASTROINTESTINAL Hx Gastrointestinal Disorders: No - GENITOURINARY/GYNECOLOGICAL Hx Sexually Transmitted Disorders: No - PSYCHIATRIC Hx Substance Use: No - SURGICAL HISTORY Hx Hysterectomy: Yes Other/Comment: benign tumor removed left breast - ANESTHESIA Hx Anesthesia: Yes Hx Anesthesia Reactions: No Hx Malignant Hyperthermia: No Meds Allergies/Adverse Reactions: Allergies Allergy/AdvReac Type Severity Reaction Status Date / Time No Known Allergies Allergy Verified 03/27/18 21:45 Physical Exam - Additional Findings Additional findings: - Constitutional Appears: Non-toxic, No Acute Distress, Confused - Head Exam Head Exam: ATRAUMATIC, NORMAL INSPECTION, NORMOCEPHALIC - Eye Exam Eye Exam: EOMI, Normal appearance, PERRL - Respiratory Exam Respiratory Exam: Clear to Auscultation Bilateral, NORMAL BREATHING PATTERN. a bsent: Accessory Muscle Use, Rales, Rhonchi, Wheezes, Respiratory Distress, Stridor - Cardiovascular Exam Cardiovascular Exam: RRR, +S1, +S2. absent: Gallop, Rubs - GI/Abdominal Exam GI & Abdominal Exam: Normal Bowel Sounds, Soft. absent: Distended, Firm, Guarding, Tenderness - Extremities Exam Extremities exam: Positive for: normal inspection. Negative for: calf tenderness, pedal edema - Back Exam Back exam: NORMAL INSPECTION. absent: CVA tenderness (L), CVA tenderness (R) - Neurological Exam Neurological exam: Altered Additional comments: - Psychiatric Exam Psychiatric exam: Anxious Results - Vital Signs Recent Vital Signs: Last Vital Signs Temp 98.4 F 08/24/18 22:00 Pulse 69 08/24/18 22:00 Resp 18 08/25/18 04:13 BP 159/83 H 08/24/18 22:00 Pulse Ox 97 08/24/18 22:00 - Labs Result Diagrams: 08/25/18 07:15 08/25/18 07:15 Labs: Laboratory Results - last 24 hr 08/24/18 08/24/18 08/24/18 11:10 11:10 11:10 WBC 11.1 H RBC 3.63 Hgb 11.3 L Hct 32.5 L MCV 89.5 MCH 31.1 MCHC 34.8 RDW 12.7 Plt Count 485 H MPV 8.2 Neut % (Auto) 79.8 H Lymph % (Auto) 14.8 L Early % (Auto) 5.2 Eos % (Auto) 0.1 L Baso % (Auto) 0.1 Lymph # (Auto) 1.7 Early # (Auto) 0.6 Eos # (Auto) 0.0 Baso # (Auto) 0.01 Absolute Neuts (auto) 8.87 H PT 11.6 INR 1.03 APTT 31.6 Sodium 126 L Potassium 4.6 Chloride 94 L Carbon Dioxide 25 Anion Gap 12 BUN 12 Creatinine 0.6 L Est GFR ( Amer) > 60 Est GFR (Non-Af Amer) > 60 Random Glucose 140 H Serum Osmolality Calcium 9.7 Total Bilirubin 0.2 AST 19 ALT 23 Alkaline Phosphatase 57 Total Creatine Kinase < 20 L Troponin I < 0.01 NT-Pro-B Natriuret Pep 213 Total Protein 7.5 Albumin 4.2 Globulin 3.2 Albumin/Globulin Ratio 1.3 Lipase 60 Urine Color Urine Appearance Urine pH Ur Specific Crescent Urine Protein Urine Glucose (UA) Urine Ketones Urine Blood Urine Nitrate Urine Bilirubin Urine Urobilinogen Ur Leukocyte Esterase Urine RBC Urine WBC Ur Epithelial Cells Urine Bacteria Influenza Typ A,B (EIA) 08/24/18 08/24/18 08/24/18 11:10 16:43 20:20 WBC RBC Hgb Hct MCV MCH MCHC RDW Plt Count MPV Neut % (Auto) Lymph % (Auto) Early % (Auto) Eos % (Auto) Baso % (Auto) Lymph # (Auto) Early # (Auto) Eos # (Auto) Baso # (Auto) Absolute Neuts (auto) PT INR APTT Sodium Potassium Chloride Carbon Dioxide Anion Gap BUN Creatinine Est GFR ( Amer) Est GFR (Non-Af Amer) Random Glucose Serum Osmolality 262 L Calcium Total Bilirubin AST ALT Alkaline Phosphatase Total Creatine Kinase Troponin I NT-Pro-B Natriuret Pep Total Protein Albumin Globulin Albumin/Globulin Ratio Lipase Urine Color Yellow Urine Appearance Clear Urine pH 7.0 Ur Specific Crescent 1.020 Urine Protein Negative Urine Glucose (UA) Negative Urine Ketones Negative Urine Blood Trace-lysed H Urine Nitrate Negative Urine Bilirubin Negative Urine Urobilinogen 0.2 Ur Leukocyte Esterase Negative Urine RBC 2 - 5 H Urine WBC 1 - 3 Ur Epithelial Cells 4 - 5 Urine Bacteria Few Influenza Typ A,B (EIA) Negative for flu a/b Assessment & Plan - Assessment and Plan (Free Text) Assessment: -Hyponatremia -Cough -Anxiety -HTN -Chronic back pain -Depression -Rheumatoid Arthritis -Tobacco abuse -Gait dysfunction -Frequent falls Plan: Patient's vitals, blood work, imaging noted. Serum Na 126 on admission, Serum Osm 262, Urine Osm 302, Urine Na 95. F/u FLP, HgbA1c, Thyroid studies, anemia panel, and uric acid. Suspect SIADH as cause of Hyponatremia. Patient on NS@100. Correct hyponatremia at rate of 6-8meq in 24 hours. Patient's CXR unremarkable. Mucinex and Robitussin on board. Patient has xanax and celexa ordered for anxiety and depression. Continue home neurontin. Maintain normotension and continue home lopressor. Nicoderm patch ordered. Smoking cessation counseling on board. PT on board for gait dysfunction and frequent falls. Discussed with Dr. Kyle Fuller PGY3 <Kota Wright - Last Filed: 08/25/18 21:24> Results - Vital Signs Recent Vital Signs: Last Vital Signs Temp 98.2 F 08/25/18 14:00 Pulse 75 08/25/18 19:12 Resp 18 08/25/18 14:00 BP 139/73 08/25/18 19:12 Pulse Ox 94 L 08/25/18 14:00 - Labs Result Diagrams: 08/25/18 07:15 08/25/18 20:28 Labs: Laboratory Results - last 24 hr 08/24/18 08/25/18 08/25/18 16:42 07:15 07:15 WBC 12.5 H RBC 3.56 Hgb 11.2 L Hct 31.9 L MCV 89.6 MCH 31.5 MCHC 35.1 RDW 12.9 Plt Count 460 H MPV 8.0 Retic Count Sodium 129 L Potassium 4.8 Chloride 95 L Carbon Dioxide 26 Anion Gap 12 BUN 9 Creatinine 0.7 Est GFR ( Amer) > 60 Est GFR (Non-Af Amer) > 60 POC Glucose (mg/dL) 126 H Random Glucose 118 H Uric Acid Calcium 9.6 Phosphorus 2.9 Magnesium 1.8 Iron TIBC % Saturation Total Bilirubin 0.3 AST 22 ALT 27 Alkaline Phosphatase 60 Total Protein 7.2 Albumin 4.1 Globulin 3.0 Albumin/Globulin Ratio 1.4 Urine Osmolality Ur Random Creatinine Ur Random Sodium Ur Random Uric Acid 08/25/18 08/25/18 08/25/18 18:00 19:00 20:28 WBC RBC Hgb Hct MCV MCH MCHC RDW Plt Count MPV Retic Count Sodium 129 L Potassium 4.0 Chloride 97 L Carbon Dioxide 26 Anion Gap 10 BUN 18 Creatinine 1.1 Est GFR ( Amer) 60 Est GFR (Non-Af Amer) 49 POC Glucose (mg/dL) Random Glucose 105 Uric Acid 4.3 Calcium 9.0 Phosphorus Magnesium Iron TIBC % Saturation Total Bilirubin AST ALT Alkaline Phosphatase Total Protein Albumin Globulin Albumin/Globulin Ratio Urine Osmolality 302 Ur Random Creatinine 35 Ur Random Sodium 95 Ur Random Uric Acid 9.2 08/25/18 08/25/18 20:28 20:35 WBC RBC Hgb Hct MCV MCH MCHC RDW Plt Count MPV Retic Count 1.42 Sodium Potassium Chloride Carbon Dioxide Anion Gap BUN Creatinine Est GFR ( Amer) Est GFR (Non-Af Amer) POC Glucose (mg/dL) Random Glucose Uric Acid Calcium Phosphorus Magnesium Iron 45 TIBC 274 % Saturation 16 L Total Bilirubin AST ALT Alkaline Phosphatase Total Protein Albumin Globulin Albumin/Globulin Ratio Urine Osmolality Ur Random Creatinine Ur Random Sodium Ur Random Uric Acid Assessment & Plan - Assessment and Plan (Free Text) Plan: Pt seen and examined by me. I have reviewed the note of the emergency medical technician/driver and I agree with it. I have discussed the assessment and plan with the resident. I have reviewed the medications and the last labs. Pt with hyponatremia. Possible hypovolemia vs euvolemia.The Na did start to improve with NS. She is on Clexa and Xanax for her anxiety and depression. She is on a nicdoerm patch for her smoking. She was advised to quit smoking. Will get PT evaluation for fall.
[2018-08-25 07:33] LABS: HEMOGLOBIN 11.2 g/dL (12.0-16.0); MEAN CELL VOLUME 89.6 fl (80.0-105.0); MEAN CORPUSCULAR HEMOGLOBIN 31.5 pg (25.0-35.0); MEAN CORPUSCULAR HGB CONC 35.1 g/dl (31.0-37.0); RBC 3.56 10^6/uL (3.5-6.1); RED CELL DISTRIBUTION WIDTH 12.9 % (11.5-14.5); WHITE BLOOD COUNT 12.5 10^3/uL (4.5-11.0)
[2018-08-25 07:54] LABS: ALB/GLOB RATIO 1.4 (1.1-1.8); ALBUMIN 4.1 g/dL (3.0-4.8); ALT/SGPT 27 U/L (7-56); AST/SGOT 22 U/L (14-36); BLOOD UREA NITROGEN 9 mg/dL (7-21); CALCIUM 9.6 mg/dL (8.4-10.5); GFR NON-AFRICAN AMERICAN > 60
[2018-08-25] MEDS: Sodium Chloride 0.9% 1,000 ML IV SCH ×2 (11:07→22:12)
[2018-08-25] MEDS ORDERED: guaiFENesin DM 100 mg-10 mg/5 ml UD PO PRN (12:10)
--- NOTE | 2018-08-25 13:37 | CP.PCM.APN ---
Subjective - Date & Time of Evaluation Date of Evaluation: 08/25/18 Time of Evaluation: 10:00 - Subjective Subjective: pt seen and examined at bedside Review of Systems - Review of Systems All systems: reviewed and no additional remarkable complaints except Objective - Vital Signs/Intake and Output Vital Signs (last 24 hours): Temp Pulse Resp BP Pulse Ox 98.1 F 76 18 189/93 H 96 08/25/18 06:00 08/25/18 10:57 08/25/18 06:00 08/25/18 10:57 08/25/18 06:00 Intake and Output: 08/25/18 08/25/18 06:59 18:59 Intake Total 1440 Balance 1440 - Medications Medications: Current Medications Alprazolam (Xanax) 2 mg PO BID PRN PRN Reason: Anxiety Last Admin: 08/25/18 10:58 Dose: 2 mg Aspirin (Ecotrin) 81 mg PO DAILY [facility] Last Admin: 08/25/18 10:57 Dose: 81 mg Citalopram Hydrobromide (Celexa) 40 mg PO DAILY [facility] Last Admin: 08/25/18 10:57 Dose: 40 mg Cyclobenzaprine HCl (Flexeril) 5 mg PO DAILY PRN PRN Reason: Muscle spasm Gabapentin (Neurontin) 300 mg PO TID [facility]; Protocol Last Admin: 08/25/18 10:58 Dose: 300 mg Guaifenesin (Mucinex La) 600 mg PO BID [facility] Guaifenesin/Dextromethorphan (Robitussin Dm) 5 ml PO Q4H PRN PRN Reason: Cough Sodium Chloride (Sodium Chloride 0.9%) 1,000 mls @ 100 mls/hr IV .Q10H [facility] Last Admin: 08/25/18 11:07 Dose: 100 mls/hr Metoprolol Tartrate (Lopressor) 25 mg PO BID [facility] Last Admin: 08/25/18 10:57 Dose: 25 mg Nicotine (Nicoderm Cq) 1 patch TD DAILY [facility] Last Admin: 08/25/18 10:59 Dose: 1 patch Ondansetron HCl (Zofran Inj) 4 mg IVP Q6H PRN PRN Reason: Nausea/Vomiting Last Admin: 08/25/18 10:56 Dose: 4 mg Quetiapine Fumarate (Seroquel) 50 mg PO [facility]; Protocol - Labs Labs: 08/25/18 07:15 08/25/18 07:15 PT 11.6 SECONDS (9.4-12.5) 08/24/18 11:10 INR 1.03 08/24/18 11:10 APTT 31.6 Seconds (26.9-38.3) 08/24/18 11:10 Assessment and Plan - Assessment and Plan (Free Text) Plan: pt admit with hyponatremia s/p treatment for dc home today BPCI/TIC - BPCIA/TIC Educated pt/family on BPCIA/CIR/Med to Bed Programs: N/A Flyers given, including CMS Beneficiary letter: N/A Pt/family verbalized understanding & agreed to program: N/A
[2018-08-25 18:58] LABS: OSMOLALITY,URINE 302 mosm/kg (300-1000)
[2018-08-25] MEDS: guaiFENesin 600 mg ER Tab PO SCH (19:12)
[2018-08-25 20:43] LABS: IRON 45 ug/dL (45-180)
[2018-08-25 20:45] LABS: URIC ACID 4.3 mg/dL (2.5-6.2)
[2018-08-25 20:52] LABS: % IRON SATURATION 16 % (20-55); TOTAL IRON BINDING CAPACITY 274 ug/dL (265-497)
[2018-08-25] MEDS ORDERED: DiphenhydrAMINE 50 mg/ml Inj IVP STA (21:54)
[2018-08-26 06:09] VITALS: BP 160/88; PULSE 55; TEMP 98.8; O2SAT 96
[2018-08-26 08:07] LABS: BASO # 0.02 K/mm3 (0.0-2.0); BASO % 0.2 % (0.0-3.0); EOS # 0.1 (0.0-0.7); EOS % 0.5 % (1.5-5.0); HEMOGLOBIN 10.7 g/dL (12.0-16.0); LYMPH # 2.2 (1.2-3.4); MEAN CELL VOLUME 91.1 fl (80.0-105.0); MEAN CORPUSCULAR HEMOGLOBIN 30.8 pg (25.0-35.0); MEAN CORPUSCULAR HGB CONC 33.9 g/dl (31.0-37.0); MEAN PLATELET VOLUME 7.9 fl (7.0-11.0); MONO # 0.8 (0.1-0.6); MONO % 7.6 % (1.0-6.0); RBC 3.47 10^6/uL (3.5-6.1); RED CELL DISTRIBUTION WIDTH 13.2 % (11.5-14.5); WHITE BLOOD COUNT 10.7 10^3/uL (4.5-11.0)
[2018-08-26 08:16] LABS: ALB/GLOB RATIO 1.3 (1.1-1.8); ALBUMIN 3.9 g/dL (3.0-4.8); ALT/SGPT 23 U/L (7-56); AST/SGOT 18 U/L (14-36); BLOOD UREA NITROGEN 17 mg/dL (7-21); CALCIUM 9.2 mg/dL (8.4-10.5); GFR NON-AFRICAN AMERICAN 55; HDL CHOLESTEROL 49 mg/dL (29-60)
--- NOTE | 2018-08-26 08:20 | CP.PCM.PN ---
Objective - Vital Signs/Intake and Output Vital Signs (last 24 hours): Temp Pulse Resp BP Pulse Ox 98.8 F 55 L 18 160/88 H 96 08/26/18 06:00 08/26/18 06:00 08/26/18 06:00 08/26/18 06:00 08/26/18 06:00 Intake and Output: 08/26/18 08/26/18 06:59 18:59 Intake Total 120 Balance 120 - Medications Medications: Current Medications Alprazolam (Xanax) 2 mg PO BID PRN PRN Reason: Anxiety Last Admin: 08/25/18 19:12 Dose: 2 mg Aspirin (Ecotrin) 81 mg PO DAILY [facility] Last Admin: 08/25/18 10:57 Dose: 81 mg Citalopram Hydrobromide (Celexa) 40 mg PO DAILY [facility] Last Admin: 08/25/18 10:57 Dose: 40 mg Cyclobenzaprine HCl (Flexeril) 5 mg PO DAILY PRN PRN Reason: Muscle spasm Last Admin: 08/25/18 22:11 Dose: 5 mg Gabapentin (Neurontin) 300 mg PO TID [facility]; Protocol Last Admin: 08/25/18 19:12 Dose: 300 mg Guaifenesin (Mucinex La) 600 mg PO BID [facility] Last Admin: 08/25/18 19:12 Dose: 600 mg Guaifenesin/Dextromethorphan (Robitussin Dm) 5 ml PO Q4H PRN PRN Reason: Cough Last Admin: 08/25/18 21:21 Dose: 5 ml Sodium Chloride (Sodium Chloride 0.9%) 1,000 mls @ 100 mls/hr IV .Q10H [facility] Last Admin: 08/25/18 22:12 Dose: 100 mls/hr Metoprolol Tartrate (Lopressor) 25 mg PO BID [facility] Last Admin: 08/25/18 19:12 Dose: 25 mg Nicotine (Nicoderm Cq) 1 patch TD DAILY [facility] Last Admin: 08/25/18 10:59 Dose: 1 patch Ondansetron HCl (Zofran Inj) 4 mg IVP Q6H PRN PRN Reason: Nausea/Vomiting Last Admin: 08/25/18 10:56 Dose: 4 mg Quetiapine Fumarate (Seroquel) 50 mg PO HS [facility]; Protocol Last Admin: 08/25/18 21:21 Dose: 50 mg - Labs Labs: 08/26/18 07:50 08/26/18 07:50 PT 11.6 SECONDS (9.4-12.5) 08/24/18 11:10 INR 1.03 08/24/18 11:10 APTT 31.6 Seconds (26.9-38.3) 08/24/18 11:10
[2018-08-26 08:22] VITALS: RESP 20
[2018-08-26 08:28] LABS: LDL CHOLESTEROL 143 mg/dL (0-129)
[2018-08-26] MEDS: guaiFENesin 600 mg ER Tab PO SCH (09:00)
--- NOTE | 2018-08-26 10:15 | CP.PCM.DIS ---
<Stephani Fuller - Last Filed: 08/26/18 11:16> Provider - Provider Date of Admission: 08/25/18 11:27 Attending physician: Kota Wright MD Primary care physician: Dr. Stern Time Spent in preparation of Discharge (in minutes): 25 Hospital Course - Lab Results Lab Results: Most Recent Lab Values WBC 10.7 10^3/uL (4.5-11.0) 08/26/18 07:50 RBC 3.47 10^6/uL (3.5-6.1) L 08/26/18 07:50 Hgb 10.7 g/dL (12.0-16.0) L 08/26/18 07:50 Hct 31.6 % (36.0-48.0) L 08/26/18 07:50 MCV 91.1 fl (80.0-105.0) 08/26/18 07:50 MCH 30.8 pg (25.0-35.0) 08/26/18 07:50 MCHC 33.9 g/dl (31.0-37.0) 08/26/18 07:50 RDW 13.2 % (11.5-14.5) 08/26/18 07:50 Plt Count 448 10^3/uL (120.0-450.0) 08/26/18 07:50 MPV 7.9 fl (7.0-11.0) 08/26/18 07:50 Neut % (Auto) 71.7 % (50.0-68.0) H 08/26/18 07:50 Lymph % (Auto) 20.0 % (22.0-35.0) L 08/26/18 07:50 [place] % (Auto) 7.6 % (1.0-6.0) H 08/26/18 07:50 Eos % (Auto) 0.5 % (1.5-5.0) L 08/26/18 07:50 Baso % (Auto) 0.2 % (0.0-3.0) 08/26/18 07:50 Lymph # (Auto) 2.2 (1.2-3.4) 08/26/18 07:50 [place] # (Auto) 0.8 (0.1-0.6) H 08/26/18 07:50 Eos # (Auto) 0.1 (0.0-0.7) 08/26/18 07:50 Baso # (Auto) 0.02 K/mm3 (0.0-2.0) 08/26/18 07:50 Absolute Neuts (auto) 7.69 (1.4-6.5) H 08/26/18 07:50 Retic Count 1.42 % (0.5-1.5) 08/25/18 20:28 PT 11.6 SECONDS (9.4-12.5) 08/24/18 11:10 INR 1.03 08/24/18 11:10 APTT 31.6 Seconds (26.9-38.3) 08/24/18 11:10 Sodium 131 mmol/L (132-148) L 08/26/18 07:50 Potassium 4.6 mmol/L (3.6-5.0) 08/26/18 07:50 Chloride 98 mmol/L (98-107) 08/26/18 07:50 Carbon Dioxide 28 mmol/L (21-33) 08/26/18 07:50 Anion Gap 10 (10-20) 08/26/18 07:50 BUN 17 mg/dL (7-21) 08/26/18 07:50 Creatinine 1.0 mg/dl (0.7-1.2) 08/26/18 07:50 Est GFR ( Amer) > 60 08/26/18 07:50 Est GFR (Non-Af Amer) 55 08/26/18 07:50 POC Glucose (mg/dL) 126 mg/dL (65-110) H 08/24/18 16:42 Random Glucose 102 mg/dL (70-110) 08/26/18 07:50 Serum Osmolality 262 mosm/kg (272-300) L 08/24/18 20:20 Uric Acid 4.3 mg/dL (2.5-6.2) 08/25/18 20:28 Calcium 9.2 mg/dL (8.4-10.5) 08/26/18 07:50 Phosphorus 3.1 mg/dL (2.5-4.5) 08/26/18 07:50 Magnesium 1.8 mg/dL (1.7-2.2) 08/26/18 07:50 Iron 45 ug/dL (45-180) 08/25/18 20:35 TIBC 274 ug/dL (265-497) 08/25/18 20:35 % Saturation 16 % (20-55) L 08/25/18 20:35 Total Bilirubin 0.3 mg/dL (0.2-1.3) 08/26/18 07:50 AST 18 U/L (14-36) 08/26/18 07:50 ALT 23 U/L (7-56) 08/26/18 07:50 Alkaline Phosphatase 52 U/L (38-126) 08/26/18 07:50 Total Creatine Kinase < 20 U/L (35-230) L 08/24/18 11:10 Troponin I < 0.01 ng/mL 08/24/18 11:10 NT-Pro-B Natriuret Pep 213 pg/mL (0-450) 08/24/18 11:10 Total Protein 6.7 g/dL (5.8-8.3) 08/26/18 07:50 Albumin 3.9 g/dL (3.0-4.8) 08/26/18 07:50 Globulin 2.9 gm/dL 08/26/18 07:50 Albumin/Globulin Ratio 1.3 (1.1-1.8) 08/26/18 07:50 Triglycerides 78 mg/dL (35-160) 08/26/18 07:50 Cholesterol 230 mg/dL (130-200) H 08/26/18 07:50 LDL Cholesterol Direct 143 mg/dL (0-129) H 08/26/18 07:50 HDL Cholesterol 49 mg/dL (29-60) 08/26/18 07:50 Lipase 60 U/L (23-300) 08/24/18 11:10 TSH 3rd Generation 0.26 mIU/mL (0.46-4.68) L 08/26/18 07:50 Urine Color Yellow (YELLOW) 08/24/18 16:43 Urine Appearance Clear (CLEAR) 08/24/18 16:43 Urine pH 7.0 (4.7-8.0) 08/24/18 16:43 Ur Specific [place] 1.020 (1.005-1.035) 08/24/18 16:43 Urine Protein Negative mg/dL (<30 mg/dL) 08/24/18 16:43 Urine Glucose (UA) Negative mg/dL (NEGATIVE) 08/24/18 16:43 Urine Ketones Negative mg/dL (NEGATIVE) 08/24/18 16:43 Urine Blood Trace-lysed (NEGATIVE) H 08/24/18 16:43 Urine Nitrate Negative (NEGATIVE) 08/24/18 16:43 Urine Bilirubin Negative (NEGATIVE) 08/24/18 16:43 Urine Urobilinogen 0.2 E.U./dL (<1 E.U./dL) 08/24/18 16:43 Ur Leukocyte Esterase Negative [place]/uL (NEGATIVE) 08/24/18 16:43 Urine RBC 2 - 5 /hpf (0-2) H 08/24/18 16:43 Urine WBC 1 - 3 /hpf (0-6) 08/24/18 16:43 Ur Epithelial Cells 4 - 5 /hpf (0-5) 08/24/18 16:43 Urine Bacteria Few /hpf (NONE) 08/24/18 16:43 Urine Osmolality 302 mosm/kg (300-1000) 08/25/18 18:00 Ur Random Creatinine 35 mg/dL 08/25/18 19:00 Ur Random Sodium 95 meq/L 08/25/18 18:00 Ur Random Uric Acid 9.2 mg/dL 08/25/18 19:00 Influenza Typ A,B (EIA) Negative for flu a/b (NEGATIVE) 08/24/18 11:10 - Hospital Course Hospital Course: Upon Admission As per HPI: 68yo female PMHx Rheumatoid arthritis, chronic back pain, anxiety, HTN and depression presents with cough and SOB for 3 days. Patient reported coughing yellow/brown sputum which was keeping her up at night. She denied fever, chills, chest pain, abdominal pain, vomiting, diarrhea, dysuria. Patient this AM admitted to anxiety and diffuse body aches. Hospital Course Patient admitted to med/surg for further management. Serum Na 126 on admission, Serum Osm 262, Urine Osm 302, Urine Na 95. FLP revealed slightly elevated cholesterol and LDL. Patient advised to follow a heart healthy diet and follow up management as outpatient with her primary care doctor. Iron studies wnl. Suspect SIADH as cause of Hyponatremia. Patient on NS@100. Correct hyponatremia at rate of 6-8meq in 24 hours. Repeat Na 131. Patient's CXR unremarkable. Mucinex and Robitussin on board. Patient had home xanax and celexa on board for anxiety and depression. Continued on home neurontin as patient requested. Maintain normotension and continue home lopressor. Nicoderm patch ordered. Smoking cessation counseling on board. PT on board for gait dysfunction and frequent falls. On day of discharge patient deemed medically optimized for discharge home. Discharge Instructions You are being discharged from [facility]. Please resume all home medications as prescribed by your Primary Care Doctor. Please follow up with your PMD Dr. Stern within 7-10 days. Please also follow up with your Psychiatrist Dr. Cunningham within 5-7 days. If symptoms return please visit your nearest Emergency Room. Patient voiced understanding and agreement with discharge plan. For full hospital course please refer to EMR. Discharge Exam - Additional Findings Additional findings: - Constitutional Appears: Non-toxic, No Acute Distress - Head Exam Head Exam: ATRAUMATIC, NORMAL INSPECTION, NORMOCEPHALIC - Eye Exam Eye Exam: EOMI, Normal appearance, PERRL - Respiratory Exam Respiratory Exam: Clear to Auscultation Bilateral, NORMAL BREATHING PATTERN. absent: Accessory Muscle Use, Rales, Rhonchi, Wheezes, Respiratory Distress, Stridor - Cardiovascular Exam Cardiovascular Exam: RRR, +S1, +S2. absent: Gallop, Rubs - GI/Abdominal Exam GI & Abdominal Exam: Normal Bowel Sounds, Soft. absent: Distended, Firm, Guarding, Tenderness - Extremities Exam Extremities exam: Positive for: normal inspection. Negative for: calf tenderness, pedal edema - Back Exam Back exam: NORMAL INSPECTION. absent: CVA tenderness (L), CVA tenderness (R) - Neurological Exam Neurological exam: Altered Additional comments: - Psychiatric Exam Psychiatric exam: Anxious (improved from yesterday) Discharge Plan - Follow Up Plan Condition: STABLE Disposition: HOME/ ROUTINE Instructions: Generalized Anxiety Disorder, Hyponatremia (DC), Hyponatremia (DC), Hyponatremia (GEN) Additional Instructions: You are being discharged from [facility]. Please resume all home medications as prescribed by your Primary Care Doctor. Please follow up with your PMD Dr. Stern within 7-10 days. Please also follow up with your Psychiatrist Dr. Cunningham within 5-7 days. If symptoms return please visit your nearest Emergency Room. Referrals: Reinaldo Cunningham MD [Non-Staff] - Sydnee Stern MD [Family Provider] - <Kota Wright - Last Filed: 08/29/18 17:11> Provider - Provider Date of Admission: 08/25/18 11:27 Attending physician: Kota Wright MD Hospital Course - Lab Results Lab Results: Micro Results 08/24/18 16:43 Urine Random Urine Culture - Final No Growth (<1,000 CFU/ML) Most Recent Lab Values WBC 10.7 10^3/uL (4.5-11.0) 08/26/18 07:50 RBC 3.47 10^6/uL (3.5-6.1) L 08/26/18 07:50 Hgb 10.7 g/dL (12.0-16.0) L 08/26/18 07:50 Hct 31.6 % (36.0-48.0) L 08/26/18 07:50 MCV 91.1 fl (80.0-105.0) 08/26/18 07:50 MCH 30.8 pg (25.0-35.0) 08/26/18 07:50 MCHC 33.9 g/dl (31.0-37.0) 08/26/18 07:50 RDW 13.2 % (11.5-14.5) 08/26/18 07:50 Plt Count 448 10^3/uL (120.0-450.0) 08/26/18 07:50 MPV 7.9 fl (7.0-11.0) 08/26/18 07:50 Neut % (Auto) 71.7 % (50.0-68.0) H 08/26/18 07:50 Lymph % (Auto) 20.0 % (22.0-35.0) L 08/26/18 07:50 [place] % (Auto) 7.6 % (1.0-6.0) H 08/26/18 07:50 Eos % (Auto) 0.5 % (1.5-5.0) L 08/26/18 07:50 Baso % (Auto) 0.2 % (0.0-3.0) 08/26/18 07:50 Lymph # (Auto) 2.2 (1.2-3.4) 08/26/18 07:50 [place] # (Auto) 0.8 (0.1-0.6) H 08/26/18 07:50 Eos # (Auto) 0.1 (0.0-0.7) 08/26/18 07:50 Baso # (Auto) 0.02 K/mm3 (0.0-2.0) 08/26/18 07:50 Absolute Neuts (auto) 7.69 (1.4-6.5) H 08/26/18 07:50 Retic Count 1.42 % (0.5-1.5) 08/25/18 20:28 PT 11.6 SECONDS (9.4-12.5) 08/24/18 11:10 INR 1.03 08/24/18 11:10 APTT 31.6 Seconds (26.9-38.3) 08/24/18 11:10 Sodium 131 mmol/L (132-148) L 08/26/18 07:50 Potassium 4.6 mmol/L (3.6-5.0) 08/26/18 07:50 Chloride 98 mmol/L (98-107) 08/26/18 07:50 Carbon Dioxide 28 mmol/L (21-33) 08/26/18 07:50 Anion Gap 10 (10-20) 08/26/18 07:50 BUN 17 mg/dL (7-21) 08/26/18 07:50 Creatinine 1.0 mg/dl (0.7-1.2) 08/26/18 07:50 Est GFR ( Amer) > 60 08/26/18 07:50 Est GFR (Non-Af Amer) 55 08/26/18 07:50 POC Glucose (mg/dL) 126 mg/dL (65-110) H 08/24/18 16:42 Random Glucose 102 mg/dL (70-110) 08/26/18 07:50 Hemoglobin A1c 5.7 % (4.2-6.5) 08/26/18 07:50 Serum Osmolality 262 mosm/kg (272-300) L 08/24/18 20:20 Uric Acid 4.3 mg/dL (2.5-6.2) 08/25/18 20:28 Calcium 9.2 mg/dL (8.4-10.5) 08/26/18 07:50 Phosphorus 3.1 mg/dL (2.5-4.5) 08/26/18 07:50 Magnesium 1.8 mg/dL (1.7-2.2) 08/26/18 07:50 Iron 45 ug/dL (45-180) 08/25/18 20:35 TIBC 274 ug/dL (265-497) 08/25/18 20:35 % Saturation 16 % (20-55) L 08/25/18 20:35 Transferrin 211.63 mg/dL (206-381) 08/25/18 20:28 Ferritin 65.9 ng/mL 08/25/18 20:28 Total Bilirubin 0.3 mg/dL (0.2-1.3) 08/26/18 07:50 AST 18 U/L (14-36) 08/26/18 07:50 ALT 23 U/L (7-56) 08/26/18 07:50 Alkaline Phosphatase 52 U/L (38-126) 08/26/18 07:50 Total Creatine Kinase < 20 U/L (35-230) L 08/24/18 11:10 Troponin I < 0.01 ng/mL 08/24/18 11:10 NT-Pro-B Natriuret Pep 213 pg/mL (0-450) 08/24/18 11:10 Total Protein 6.7 g/dL (5.8-8.3) 08/26/18 07:50 Albumin 3.9 g/dL (3.0-4.8) 08/26/18 07:50 Globulin 2.9 gm/dL 08/26/18 07:50 Albumin/Globulin Ratio 1.3 (1.1-1.8) 08/26/18 07:50 Triglycerides 78 mg/dL (35-160) 08/26/18 07:50 Cholesterol 230 mg/dL (130-200) H 08/26/18 07:50 LDL Cholesterol Direct 143 mg/dL (0-129) H 08/26/18 07:50 HDL Cholesterol 49 mg/dL (29-60) 08/26/18 07:50 Lipase 60 U/L (23-300) 08/24/18 11:10 TSH 3rd Generation 0.26 mIU/mL (0.46-4.68) L 08/26/18 07:50 Urine Color Yellow (YELLOW) 08/24/18 16:43 Urine Appearance Clear (CLEAR) 08/24/18 16:43 Urine pH 7.0 (4.7-8.0) 08/24/18 16:43 Ur Specific [place] 1.020 (1.005-1.035) 08/24/18 16:43 Urine Protein Negative mg/dL (<30 mg/dL) 08/24/18 16:43 Urine Glucose (UA) Negative mg/dL (NEGATIVE) 08/24/18 16:43 Urine Ketones Negative mg/dL (NEGATIVE) 08/24/18 16:43 Urine Blood Trace-lysed (NEGATIVE) H 08/24/18 16:43 Urine Nitrate Negative (NEGATIVE) 08/24/18 16:43 Urine Bilirubin Negative (NEGATIVE) 08/24/18 16:43 Urine Urobilinogen 0.2 E.U./dL (<1 E.U./dL) 08/24/18 16:43 Ur Leukocyte Esterase Negative [place]lee/uL (NEGATIVE) 08/24/18 16:43 Urine RBC 2 - 5 /hpf (0-2) H 08/24/18 16:43 Urine WBC 1 - 3 /hpf (0-6) 08/24/18 16:43 Ur Epithelial Cells 4 - 5 /hpf (0-5) 08/24/18 16:43 Urine Bacteria Few /hpf (NONE) 08/24/18 16:43 Urine Osmolality 302 mosm/kg (300-1000) 08/25/18 18:00 Ur Random Creatinine 35 mg/dL 08/25/18 19:00 Ur Random Sodium 95 meq/L 08/25/18 18:00 Ur Random Uric Acid 9.2 mg/dL 08/25/18 19:00 Influenza Typ A,B (EIA) Negative for flu a/b (NEGATIVE) 08/24/18 11:10 - Hospital Course Hospital Course: Pt seen and examined by me. Thisis a late entry.PtI have reviewed the note of the medical superintendent and I agree with it. I have discussed the assessment and plan with the resident. I have reviewed the medications and the last labs.Pt with hyponatremia that has improved. She will be discharged home and f/u with PMD.
[2018-08-26 12:49] LABS: FERRITIN 65.9 ng/mL
== END 2018-08-26 11:59 | disposition home or self-care (01) | DRG 641 ==
LOC: ED 10:45 → ERH 16:56 → 5RSO 20:40 → OBSVTOIN 08-25 11:27
PROVIDERS: ADMIT Internal Medicine Nephrology; ATTEND Internal Medicine Nephrology
DX: E87.1 Hypo-osmolality and hyponatremia (principal); M06.9 Rheumatoid arthritis, unspecified; I10 Essential (primary) hypertension; E78.00 Pure hypercholesterolemia, unspecified; F17.200 Nicotine dependence, unspecified, uncomplicated; F32.89 Other specified depressive episodes; F41.0 Panic disorder [episodic paroxysmal anxiety]; G89.29 Other chronic pain; R29.6 Repeated falls; Z90.710 Acquired absence of both cervix and uterus